=== PATIENT | female | born 1950 | race American Indian/Alaskan Native ===

== ENCOUNTER 2017-05-11 09:05 | Emergency (ER) | payer MEDICAID, MEDICARE, OTHER ==
--- NOTE | 2017-05-11 09:10 | Emergency Department Report ---
ED Neuro Deficit HPI - General Chief Complaint: Neuro Symptoms/Deficit Stated Complaint: POSS CVA Time Seen by Provider: 05/11/17 09:08 Source: patient, EMS (verbal report received from EMS.ems notes not available at time of chart dictation) Mode of arrival: Stretcher Limitations: Physical Limitation - History of Present Illness Initial Comments: This is a 67-year-old female, may have a history of brain cancer, brought to the hospital by EMS as a code stroke. EMS indicates that patient called with a report of weakness, slurred speech that started at 6:00 in the morning today. Symptoms constant. Has a headache, they do not radiate anywhere, no exacerbating or relieving factors. -: Sudden Location: speech, right arm, right leg Presenting Symptoms: Present: Weak/Paralyzed One Side, Sudden, Severe Headache, Unable to Speak Clearly History of same: No Place: home Severity: severe Quality: weak Improves With: time Worsens With: none On Anticoagulants: No Context: sudden onset Associated Symptoms: headaches, malise, nausea/vomiting, weakness. denies: confusion, chest pain, cough, diaphoresis, fever/chills, loss of appetite - Related Data Allergies/Adverse Reactions: Allergies Allergy/AdvReac Type Severity Reaction Status Date / Time No Known Allergies Allergy Unverified 05/11/17 10:15 ED Review of Systems ROS: Stated complaint: POSS CVA Other details as noted in HPI ED Neuro Physical Exam - General Limitations: Physical Limitation General appearance: alert, in distress Suspected Stroke: Yes - Head Head exam: Present: atraumatic, normocephalic - Eye Eye exam: Present: normal appearance, PERRL. Absent: EOMI (patient has a right- sided lateral rectus palsy. Extraocular movements are intact in the left eye. Right eye can abduct, elevate, and look inferiorly.) - ENT ENT exam: Present: mucous membranes moist, normal external ear exam - Neck Neck exam: Present: normal inspection, full ROM - Respiratory Respiratory exam: Present: normal lung sounds bilaterally. Absent: respiratory distress - Cardiovascular Cardiovascular Exam: Present: normal rhythm, bradycardia. Absent: systolic murmur, diastolic murmur, rubs, gallop - GI/Abdominal GI/Abdominal exam: Present: soft, normal bowel sounds. Absent: distended, tenderness, guarding, rebound, rigid, pulsatile mass - Extremities Exam Extremities exam: Present: normal inspection - Back Exam Back exam: Present: normal inspection - Neurological Exam Neurological exam: Present: alert, motor sensory deficit. Absent: CN II-XII intact (patient has a right-sided lateral rectus palsy. She also has slurred speech.) - NIHSS Assessment Interval: Baseline 1a. Level of Consciousness: alert 1b. LOC Questions: answers correctly 1c. LOC Commands: performs tasks correctly 2. Best Gaze: partial gaze palsy 3. Visual: no visual loss 4. Facial Palsy: normal symmetrical movement 5b. Motor Arm Right: some gravity effort 5a. Motor Arm Left: no drift 6a. Motor Leg Left: no drift 6b. Motor Leg Right: some gravity effort 7. Limb Ataxia: present 1 limb 8. Sensory: mild/moderate sensory loss 9. Best Language: no aphasia 10. Dysarthria: mild/moderate dysarthria 11. Extinction/Inattention: no abnormality Total Score: 8 Stroke Severity: Moderate Stroke - Psychiatric Psychiatric exam: Present: anxious - Skin Skin exam: Present: warm, dry, intact, normal color. Absent: rash ED Course Vital Signs 05/11/17 05/11/17 05/11/17 09:58 10:20 10:34 Temperature 98.6 F 98.6 F Pulse Rate 46 L 36 L 45 L Respiratory 18 Rate Blood Pressure 151/54 Blood Pressure 133/52 [Right] O2 Sat by Pulse 100 Oximetry 05/11/17 05/11/17 05/11/17 10:35 11:27 11:37 Temperature Pulse Rate 69 61 Respiratory 18 16 Rate Blood Pressure 171/71 Blood Pressure 168/72 [Right] O2 Sat by Pulse 96 100 100 Oximetry 05/11/17 05/11/17 05/11/17 12:00 12:36 12:43 Temperature Pulse Rate 56 L 46 L Respiratory 16 Rate Blood Pressure 156/55 Blood Pressure 162/75 155/60 [Right] O2 Sat by Pulse 100 Oximetry - Reevaluation(s) Reevaluation #1: 05/11/17 11:12 Patient's mental status gradually deteriorated. She required intubation. She was premedicated with 100 mg of lidocaine, introduced with 20 mg of etomidate, and intubated using a Twin 4 blade and a 7.5 endotracheal tube. She did not desaturate. We contacted [facility], and discussed with neuro critical care, Dr. Hurtado; he is informed of the patient's findings and change in status. Patient had a very transient dip in blood pressure postintubation, I had contacted the pharmacy and requested phenylephrine for push dose vasopressor administration, however it was not available in time, and the patient required emergent intubation. Blood pressure in the 120s now, patient does not require vasopressor therapy at this time. Reevaluation #2: 05/11/17 15:09 At the time of discharge,/transfer, patient having issues with hypotension. However given that she is dramatically declined, it is in her best interest to be transferred and not delay transfer. Therefore, a standing when necessary order for push dose phenylephrine was written and verbally described to the transporting [facility] medics. Order is for phenylephrine, 50 g, every 2-5 minutes , as needed for hypotension, systolic less than 90, low blood pressure at least 120, mean arterial pressure at least 60. - Intubation Time Out Performed: Yes Sedative: Etomidate Mg Given: 20 Paralytic: Rocuronium Mg Given: 100 Laryngoscope: Twin Size: 4 ET Tube Size: 7.5 Tube Secured Location: teeth Tube Placement Confirmation: visualized tube passing t Patient Tolerated Procedure: well Intubation Complications: none Additional Comments: Prior to intubation, patient is placed on a nasal cannula at 15 L/m, and receives pug-vhiuo-meax ventilation. She does not desaturate. - Lab Data Result diagrams: 05/11/17 09:12 05/11/17 09:12 Lab Results 05/11/17 05/11/17 05/11/17 Range/Units 09:12 09:12 09:12 WBC 8.8 (4.5-11.0) K/mm3 RBC 4.47 (3.65-5.03) M/mm3 Hgb 13.3 (10.1-14.3) gm/dl Hct 39.3 (30.3-42.9) % MCV 88 (79-97) fl MCH 30 (28-32) pg MCHC 34 (30-34) % RDW 13.3 (13.2-15.2) % Plt Count 374 (140-440) K/mm3 Add Manual Diff Complete Total Counted 100 Seg Neutrophils % Box Truck Owner Operator Seg Neuts % (Manual) 40.0 (40.0-70.0) % Band Neutrophils % 0 % Lymphocytes % (Manual) 43.0 H (13.4-35.0) % Reactive Lymphs % (Man) 0 % Monocytes % (Manual) 6.0 (0.0-7.3) % Eosinophils % (Manual) 10.0 H (0.0-4.3) % Basophils % (Manual) 0 (0.0-1.8) % Metamyelocytes % 1.0 % Myelocytes % 0 % Promyelocytes % 0 % Blast Cells % 0 % Nucleated RBC % Not Reportable Seg Neutrophils # Man 3.5 (1.8-7.7) K/mm3 Band Neutrophils # 0.0 K/mm3 Lymphocytes # (Manual) 3.8 (1.2-5.4) K/mm3 Abs React Lymphs (Man) 0.0 K/mm3 Monocytes # (Manual) 0.5 (0.0-0.8) K/mm3 Eosinophils # (Manual) 0.9 H (0.0-0.4) K/mm3 Basophils # (Manual) 0.0 (0.0-0.1) K/mm3 Metamyelocytes # 0.1 K/mm3 Myelocytes # 0.0 K/mm3 Promyelocytes # 0.0 K/mm3 Blast Cells # 0.0 K/mm3 WBC Morphology Not Reportable Hypersegmented Neuts Not Reportable Hyposegmented Neuts Not Reportable Hypogranular Neuts Not Reportable Smudge Cells Not Reportable Toxic Granulation Not Reportable Toxic Vacuolation Not Reportable Dohle Bodies Not Reportable Pelger-Huet Anomaly Not Reportable Todd Rods Not Reportable Platelet Estimate Appears normal Clumped Platelets Not Reportable Plt Clumps, EDTA Not Reportable Large Platelets Not Reportable Giant Platelets Not Reportable Platelet Satelliting Not Reportable Plt Morphology Comment Not Reportable RBC Morphology Normal Dimorphic RBCs Not Reportable Polychromasia Not Reportable Hypochromasia Not Reportable Poikilocytosis Not Reportable Anisocytosis Not Reportable Microcytosis Not Reportable Macrocytosis Not Reportable Spherocytes Not Reportable Pappenheimer Bodies Not Reportable Sickle Cells Not Reportable Target Cells Not Reportable Tear Drop Cells Not Reportable Ovalocytes Not Reportable Helmet Cells Not Reportable [place] Bodies Not Reportable [place]bain Rings Not Reportable [place] Cells Not Reportable Bite Cells Not Reportable Crenated Cell Not Reportable Elliptocytes Not Reportable Acanthocytes (Spur) Not Reportable Rouleaux Not Reportable Hemoglobin C Crystals Not Reportable Schistocytes Not Reportable Malaria parasites Not Reportable Edilson Bodies Not Reportable Hem Pathologist Commnt No PT 14.3 (12.2-14.9) Sec. INR 1.06 (0.87-1.13) APTT 24.2 (24.2-36.6) Sec. Thrombin Time 15.0 L (15.1-19.6) Sec. POC ABG pH (7.35-7.45) POC ABG pCO2 (35-45) POC ABG pO2 (80-105) POC ABG HCO3 POC ABG Total CO2 POC ABG O2 Sat POC ABG Base Excess FiO2 % Sodium (137-145) mmol/L Potassium (3.6-5.0) mmol/L Chloride (98-107) mmol/L Carbon Dioxide (22-30) mmol/L Anion Gap mmol/L BUN (7-17) mg/dL Creatinine (0.7-1.2) mg/dL Estimated GFR ml/min BUN/Creatinine Ratio % Glucose (65-100) mg/dL POC Glucose (70-105) Calcium (8.4-10.2) mg/dL Total Creatine Kinase 123 (30-135) units/L CK-MB (CK-2) < 1.0 (0.0-4.0) ng/mL CK-MB (CK-2) Rel Index 0.8 (0-4) Troponin T < 0.010 (0.00-0.029) ng/mL 05/11/17 05/11/17 05/11/17 Range/Units 09:12 10:31 11:39 WBC (4.5-11.0) K/mm3 RBC (3.65-5.03) M/mm3 Hgb (10.1-14.3) gm/dl Hct (30.3-42.9) % MCV (79-97) fl MCH (28-32) pg MCHC (30-34) % RDW (13.2-15.2) % Plt Count (140-440) K/mm3 Add Manual Diff Total Counted Seg Neutrophils % Seg Neuts % (Manual) (40.0-70.0) % Band Neutrophils % % Lymphocytes % (Manual) (13.4-35.0) % Reactive Lymphs % (Man) % Monocytes % (Manual) (0.0-7.3) % Eosinophils % (Manual) (0.0-4.3) % Basophils % (Manual) (0.0-1.8) % Metamyelocytes % % Myelocytes % % Promyelocytes % % Blast Cells % % Nucleated RBC % Seg Neutrophils # Man (1.8-7.7) K/mm3 Band Neutrophils # K/mm3 Lymphocytes # (Manual) (1.2-5.4) K/mm3 Abs React Lymphs (Man) K/mm3 Monocytes # (Manual) (0.0-0.8) K/mm3 Eosinophils # (Manual) (0.0-0.4) K/mm3 Basophils # (Manual) (0.0-0.1) K/mm3 Metamyelocytes # K/mm3 Myelocytes # K/mm3 Promyelocytes # K/mm3 Blast Cells # K/mm3 WBC Morphology Hypersegmented Neuts Hyposegmented Neuts Hypogranular Neuts Smudge Cells Toxic Granulation Toxic Vacuolation Dohle Bodies Pelger-Huet Anomaly Todd Rods Platelet Estimate Clumped Platelets Plt Clumps, EDTA Large Platelets Giant Platelets Platelet Satelliting Plt Morphology Comment RBC Morphology Dimorphic RBCs Polychromasia Hypochromasia Poikilocytosis Anisocytosis Microcytosis Macrocytosis Spherocytes Pappenheimer Bodies Sickle Cells Target Cells Tear Drop Cells Ovalocytes Helmet Cells [place] Bodies Mcbain Rings [place] Cells Bite Cells Crenated Cell Elliptocytes Acanthocytes (Spur) Rouleaux Hemoglobin C Crystals Schistocytes Malaria parasites Edilson Bodies Hem Pathologist Commnt PT (12.2-14.9) Sec. INR (0.87-1.13) APTT (24.2-36.6) Sec. Thrombin Time (15.1-19.6) Sec. POC ABG pH 7.506 H (7.35-7.45) POC ABG pCO2 39.7 (35-45) POC ABG pO2 508 H (80-105) POC ABG HCO3 31.4 POC ABG Total CO2 33 POC ABG O2 Sat 100 POC ABG Base Excess 8 FiO2 100 % Sodium 142 (137-145) mmol/L Potassium 2.8 L* (3.6-5.0) mmol/L Chloride 100.8 (98-107) mmol/L Carbon Dioxide 25 (22-30) mmol/L Anion Gap 19 mmol/L BUN 12 (7-17) mg/dL Creatinine 0.8 (0.7-1.2) mg/dL Estimated GFR > 60 ml/min BUN/Creatinine Ratio 15 % Glucose 152 H (65-100) mg/dL POC Glucose 179 H (70-105) Calcium 9.4 (8.4-10.2) mg/dL Total Creatine Kinase (30-135) units/L CK-MB (CK-2) (0.0-4.0) ng/mL CK-MB (CK-2) Rel Index (0-4) Troponin T (0.00-0.029) ng/mL - EKG Data -: EKG Interpreted by Me EKG shows normal: sinus rhythm Rate: bradycardia When compared to previous EKG there are: previous EKG unavailable - Radiology Data Radiology results: report reviewed, image reviewed interpreted by me: X-ray of the chest demonstrates endotracheal tube at the level of the clavicles. No other acute disease. We will advance the endotracheal tube 2 cm. Referring Physician: CADEN CHIU Patient Name: JULIO C HERNANDEZ Date of : 1950 Sex: Female Report Date: 2017-05-11 Report Status: [place] [address] Cat Scan Report Signed Patient: JULIO C HERNANDEZ MR#: [id number] : 1950 Acct:[id number] Age/Sex: 67 / F ADM Date: 05/11/17 Loc: ED Attending Dr: Ordering Physician: CDAEN CHIU MD Date of Service: 05/11/17 Procedure(s): CT head/brain wo con Accession Number(s): [id number] cc: CADEN CHIU MD CT scan of head without IV contrast: History: Suspect stroke. Findings: Ventricles are midline in location normal in size. Focal area of low-attenuation adjacent to the anterior horn of the right ventricle probably chronic ischemia. There is hemorrhage identified along the cisterns in the subarachnoid spaces with suspicion of intraparenchymal hemorrhage in the right cerebellum. Suspicion of intraventricular hemorrhage. No extra-axial fluid collection. Mucosal thickening of maxillary and ethmoid sinuses normal mastoid air cells. Impression: Acute subarachnoid hemorrhage with suspicion of intraparenchymal and intraventricular hemorrhage. Dr. Dee was informed of the findings at 9:15 AM. 98N Transcribed By: PTP Dictated By: MARIZA MURRAY MD Electronically Authenticated By: MARIZA MURRAY MD Signed Date/Time: 05/11/17907 DD/ 3 TD/TT: 05/11/17907 - Medical Decision Making Differential diagnosis, intracranial tumor, intracranial hemorrhage, stroke Assessment and plan: 67-year-old female with slurred speech and numerous neurologic findings, CT scan demonstrates subarachnoid hemorrhage with intraparenchymal extension. Patient has a GCS of 14, she is somewhat confused, but otherwise opens eyes spontaneously, and has appropriate strength. Given her neurologic deficits, she does qualify for a Larsen and RIDDLE score of 3, which puts her at increased risk for mortality. At this hospital does not have neurosurgery, neuro critical care, neurology available for consultation. She will therefore require transfer to a hospital that has higher level of care. Patient's head of the bed will be elevated to 30, she will be given hydralazine for elevated blood pressure and she'll be loaded with 1 g of Keppra. Her case was presented to neuro critical care physician and [facility], Dr. Lydia Hurtado; he accepts the patient as a transfer. - Core Measures Measure Exclusions: not indicated - Thrombolytic Inclusion/Exclusion Thrombolytic Contraindications: GI or Other Bleeding Critical Care Time: Yes Critical care time in (mins) excluding proc time.: 35 Critical care attestation.: If time is entered above; I have spent that time in minutes in the direct care of this critically ill patient, excluding procedure time. ED Disposition Clinical Impression: Subarachnoid hemorrhage Disposition: DC/TX-02 SHRT-TRM GEN HOSP IP Is pt being admited?: No Condition: Critical Referrals: PRIMARY CARE, [Primary Care Provider] - 3-5 Days
[2017-05-11 09:19] LABS: Hematocrit 39.3 % (30.3-42.9); Hemoglobin 13.3 gm/dl (10.1-14.3); Mean Corpuscular HGB Conc 34 % (30-34); Mean Corpuscular Hemoglobin 30 pg (28-32); Mean Corpuscular Volume 88 fl (79-97); Platelet Count 374 K/mm3 (140-440); Red Blood Count 4.47 M/mm3 (3.65-5.03); Red Cell Distribution Width 13.3 % (13.2-15.2)
--- NOTE | 2017-05-11 09:25 | Cat Scan Report ---
CT scan of head without IV contrast: History: Suspect stroke. Findings: Ventricles are midline in location normal in size. Focal area of low-attenuation adjacent to the anterior horn of the right ventricle probably chronic ischemia. There is hemorrhage identified along the cisterns in the subarachnoid spaces with suspicion of intraparenchymal hemorrhage in the right cerebellum. Suspicion of intraventricular hemorrhage. No extra-axial fluid collection. Mucosal thickening of maxillary and ethmoid sinuses normal mastoid air cells. Impression: Acute subarachnoid hemorrhage with suspicion of intraparenchymal and intraventricular hemorrhage. Dr. Dee was informed of the findings at 9:15 AM. 98N
[2017-05-11 09:31] LABS: INR 1.06 (0.87-1.13)
[2017-05-11 09:32] LABS: Partial Thromboplastin Time 24.2 Sec. (24.2-36.6)
[2017-05-11 09:35] LABS: Creatine Kinase MB < 1.0 ng/mL (0.0-4.0)
[2017-05-11] MEDS ORDERED: KEPPRA 1,000 MG in NACL 0.9% 100 ML IV STA (09:40)
[2017-05-11] MEDS ORDERED: APRESOLINE IV ONE ×2 (09:43→12:43)
[2017-05-11 09:49] LABS: BUN/Creatinine Ratio 15; Blood Urea Nitrogen 12 mg/dL (7-17); Calcium 9.4 mg/dL (8.4-10.2); Hemolysis Index 2
[2017-05-11] MEDS ORDERED: MAGNESIUM SULFATE 2GM/50ML 2 GM/50 ML BAG IV ONE (09:56)
[2017-05-11] MEDS ORDERED: SUBLIMAZE IV ONE (09:56)
[2017-05-11] MEDS ORDERED: KCL 10MEQ/100ML 10 MEQ/100 ML BAG IV SCH (10:00)
[2017-05-11 10:01] LABS: Basophils % (Manual) 0 % (0.0-1.8); Total Cells Counted 100
[2017-05-11 10:02] LABS: RBC Morphology Normal
[2017-05-11] MEDS ORDERED: KEPPRA 1,000 MG/NS 0.75% 100ML 1,000 MG/100 ML BAG IV ONE (10:16)
[2017-05-11] MEDS ORDERED: NEO-SYNEPHRINE 100 MG in NACL 0.9% 90 ML IV ONE ×2 (10:47→11:07)
[2017-05-11] MEDS ORDERED: NACL 0.9% 1000 ML 1,000 ML ONE (10:50)
--- NOTE | 2017-05-11 10:59 | XRay Report ---
Single view chest: History: CVA. Findings: Borderline cardiomegaly. Trachea is midline. No consolidation, pneumothorax or pleural effusion. Impression: No acute cardiopulmonary findings.
[2017-05-11] MEDS ORDERED: AMIDATE IV ONE ×2 (11:00→11:05)
[2017-05-11] MEDS ORDERED: ZEMURON IV ONE ×2 (11:00→11:05)
[2017-05-11] MEDS ORDERED: XYLOCAINE CARDIAC IV ONE ×2 (11:00→11:07)
[2017-05-11] MEDS ORDERED: ARTIFICIAL TEARS OPHTH OINT OU PRN (11:05)
[2017-05-11] MEDS ORDERED: VASELINE LIP THERAPY TP PRN (11:05)
[2017-05-11] MEDS ORDERED: NEO SYNEPHRINE/NS Syringe(OR USE) IV STA (11:07)
[2017-05-11] MEDS ORDERED: NACL 0.9% IV SCH ×2 (11:15)
[2017-05-11] MEDS ORDERED: NEO SYNEPHRINE IV SCH ×2 (11:15)
--- NOTE | 2017-05-11 11:50 | XRay Report ---
FINAL REPORT EXAM: XR CHEST 1V AP HISTORY: ETT placement TECHNIQUE: Frontal chest radiograph. PRIORS: None. FINDINGS: An endotracheal tube is present with the tip lying in the mid thoracic trachea. The cardiomediastinal silhouette is normal. Ground-glass opacities are seen in the left lower lobe. No pleural effusion. No pneumothorax. No acute osseous abnormality. IMPRESSION: 1. Endotracheal tube tip lying in the mid thoracic trachea. 2. Left lower lobe atelectasis versus pneumonia.
[2017-05-11] MEDS ORDERED: KEPPRA 1,000 MG in NACL 0.9% 100 ML IV ONE (12:00)
[2017-05-11] MEDS ORDERED: NACL 0.9% 500 ML IV SCH (12:00)
[2017-05-11] MEDS ORDERED: fentaNYL DRIP Premix 2,000 MCG/100 ML BAG IV SCH (12:00)
[2017-05-11] MEDS ORDERED: APRESOLINE ONE (12:32)
[2017-05-11 12:44] VITALS: BP 156/55
== END 2017-05-11 13:30 | disposition short-term general hospital (02) ==
LOC: ED 09:05
DX: I60.9 Nontraumatic subarachnoid hemorrhage, unspecified (principal)
CPT/HCPCS: 31500; 36415; 51702; 70450; 71010; 80048; 82550; 82553; 82803; 82962; 84484; 85007; 85025; 85610; 85670; 85730; 93005; 93010; 96365; 96367; 96368; 96375; 96376; 99291; J0360; J1953; J2001; J2370; J3010; J3475; J3480; J7030; 94002

== ENCOUNTER 2017-09-15 10:37 | Emergency (ER) | payer MEDICARE ==
[2017-09-15 11:29] LABS: Basophils % (Auto) 0.2 % (0.0-1.8); Eosinophils # (Auto) 0.8 K/mm3 (0.0-0.4); Eosinophils % (Auto) 12.5 % (0.0-4.3); Hematocrit 38.4 % (30.3-42.9); Hemoglobin 12.8 gm/dl (10.1-14.3); Lymphocytes # (Auto) 1.7 K/mm3 (1.2-5.4); Lymphocytes % (Auto) 26.1 % (13.4-35.0); Mean Corpuscular HGB Conc 33 % (30-34); Mean Corpuscular Hemoglobin 28 pg (28-32); Mean Corpuscular Volume 83 fl (79-97); Monocytes # (Auto) 0.4 K/mm3 (0.0-0.8); Platelet Count 304 K/mm3 (140-440); Red Blood Count 4.64 M/mm3 (3.65-5.03); Red Cell Distribution Width 16.1 % (13.2-15.2)
[2017-09-15 11:40] LABS: BUN/Creatinine Ratio 35; Blood Urea Nitrogen 21 mg/dL (7-17); Hemolysis Index 5
--- NOTE | 2017-09-15 11:50 | Emergency Department Report ---
ED ENT HPI - General Chief complaint: Dyspnea/Respdistress Stated complaint: TRACH REINSERTED Time Seen by Provider: 09/15/17 11:23 Source: patient, EMS Mode of arrival: Stretcher Limitations: No Limitations - History of Present Illness Initial comments: 67-year-old female presents to the hospital complaining of this last tracheostomy tube. Patient presents with the on-call 6.0 Lithuanian trach at the bedside. Patient states the trach came out while changing her trach ties and after coughing. Patient states she had a history of a brain tumor and after radiation she had a stroke in April 2017 while at [facility]. She was subsequently trach and received a feeding tube. Patient does not eat via mouth. Patient is breathing normally and states she feels fine with the trach tube out and does not really want it replaced. Her ENT doctor is Dr. Holden at [facility]. Patient states she has baseline right arm weakness and ambulates with a walker - Related Data Home Medications Medication Instructions Recorded Confirmed Last Taken Amlodipine Besylate [Norvasc] 10 mg PO QDAY 09/15/17 09/15/17 Unknown Famotidine [Pepcid] 20 mg PO BID 09/15/17 09/15/17 Unknown Losartan/Hydrochlorothiazide 1 each PO QDAY 09/15/17 09/15/17 Unknown [Hyzaar 100-12.5 Tablet] Metoclopramide [Reglan ORAL LIQ] 10 ml PO QID 09/15/17 09/15/17 Unknown Sertraline HCl [Zoloft] 50 mg PO QDAY 09/15/17 09/15/17 Unknown Allergies Allergy/AdvReac Type Severity Reaction Status Date / Time No Known Allergies Allergy Unverified 05/11/17 10:15 ED Dental HPI - General Chief complaint: Dyspnea/Respdistress Stated complaint: TRACH REINSERTED Time Seen by Provider: 09/15/17 11:23 Source: patient, EMS Mode of arrival: Stretcher Limitations: No Limitations - Related Data Home Medications Medication Instructions Recorded Confirmed Last Taken Amlodipine Besylate [Norvasc] 10 mg PO QDAY 09/15/17 09/15/17 Unknown Famotidine [Pepcid] 20 mg PO BID 09/15/17 09/15/17 Unknown Losartan/Hydrochlorothiazide 1 each PO QDAY 09/15/17 09/15/17 Unknown [Hyzaar 100-12.5 Tablet] Metoclopramide [Reglan ORAL LIQ] 10 ml PO QID 09/15/17 09/15/17 Unknown Sertraline HCl [Zoloft] 50 mg PO QDAY 09/15/17 09/15/17 Unknown Allergies Allergy/AdvReac Type Severity Reaction Status Date / Time No Known Allergies Allergy Unverified 05/11/17 10:15 ED Review of Systems ROS: Stated complaint: TRACH REINSERTED Other details as noted in HPI Comment: All other systems reviewed and negative ED Past Medical Hx - Past Medical History Hx Hypertension: Yes Hx CVA: Yes (04/2017) Hx Headaches / Migraines: Yes (pt was diagnoised with a brain tumor at [facility]) - Surgical History Past Surgical History?: Yes Additional Surgical History: Nephrectomy, Hysterectomy, - Social History Smoking Status: Never Smoker Substance Use Type: None - Medications Home Medications: Home Medications Medication Instructions Recorded Confirmed Last Taken Type Amlodipine Besylate [Norvasc] 10 mg PO QDAY 09/15/17 09/15/17 Unknown History Famotidine [Pepcid] 20 mg PO BID 09/15/17 09/15/17 Unknown History Losartan/Hydrochlorothiazide 1 each PO QDAY 09/15/17 09/15/17 Unknown History [Hyzaar 100-12.5 Tablet] Metoclopramide [Reglan ORAL LIQ] 10 ml PO QID 09/15/17 09/15/17 Unknown History Sertraline HCl [Zoloft] 50 mg PO QDAY 09/15/17 09/15/17 Unknown History ED Physical Exam - General Limitations: No Limitations - Other Other exam information: General: No limitations, patient is alert in no acute distress Head exam: Atraumatic, normocephalic Eyes exam: Normal appearance, pupils equal reactive to light, extraocular movements intact ENT: Moist mucous membrane, tracheostomy stoma noted. No stridor Neck exam: Normal inspection, full range of motion, no meningismus nontender Respiratory exam: Clear to auscultation bilateral, no wheezes, rales, crackles Cardiovascular: Normal rate and rhythm, normal heart sounds Abdomen: Soft, nondistended, and nontender, with normal bowel sounds, no rebound, or guarding. 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 operator, 5/5 lower extremity strength Psychiatric: normal affect, normal mood Skin: Warm, dry, intact ED Course Vital Signs 09/15/17 09/15/17 09/15/17 10:42 10:45 10:54 Temperature 97.9 F Pulse Rate 72 78 Respiratory 13 18 Rate Blood Pressure 137/64 O2 Sat by Pulse 96 98 98 Oximetry 09/15/17 09/15/17 09/15/17 11:00 11:15 11:30 Temperature Pulse Rate 66 84 68 Respiratory 13 15 13 Rate Blood Pressure 124/65 124/65 132/62 O2 Sat by Pulse 100 98 94 Oximetry 09/15/17 09/15/17 09/15/17 11:45 12:01 12:15 Temperature Pulse Rate 102 H 85 83 Respiratory 24 12 24 Rate Blood Pressure 132/62 132/62 132/62 O2 Sat by Pulse 99 98 99 Oximetry 09/15/17 09/15/17 09/15/17 12:31 12:45 13:00 Temperature Pulse Rate 81 73 76 Respiratory 16 12 17 Rate Blood Pressure 122/41 122/41 128/72 O2 Sat by Pulse 98 98 98 Oximetry 09/15/17 09/15/17 13:15 13:31 Temperature Pulse Rate 80 82 Respiratory 11 L 16 Rate Blood Pressure 128/72 131/74 O2 Sat by Pulse 99 100 Oximetry - Reevaluation(s) Reevaluation #1: 09/15/17 12:28 4.0 uncuffed trach tube placed by Resp therapist (stoma too small for 6.0 tube) - Consultations Consultation #1: 09/15/17 13:42 Case d/w Pt's ENT doctor DR Holden, aware of trach change to 4.0, f/u appropriate ED Medical Decision Making - Lab Data Result diagrams: 09/15/17 11:12 09/15/17 11:12 Lab Results 09/15/17 09/15/17 Range/Units 11:12 11:12 WBC 6.3 (4.5-11.0) K/mm3 RBC 4.64 (3.65-5.03) M/mm3 Hgb 12.8 (10.1-14.3) gm/dl Hct 38.4 (30.3-42.9) % MCV 83 (79-97) fl MCH 28 (28-32) pg MCHC 33 (30-34) % RDW 16.1 H (13.2-15.2) % Plt Count 304 (140-440) K/mm3 Lymph % (Auto) 26.1 (13.4-35.0) % [place] % (Auto) 6.0 (0.0-7.3) % Eos % (Auto) 12.5 H (0.0-4.3) % Baso % (Auto) 0.2 (0.0-1.8) % Lymph # 1.7 (1.2-5.4) K/mm3 [place] # 0.4 (0.0-0.8) K/mm3 Eos # 0.8 H (0.0-0.4) K/mm3 Baso # 0.0 (0.0-0.1) K/mm3 Seg Neutrophils % 55.2 (40.0-70.0) % Seg Neutrophils # 3.5 (1.8-7.7) K/mm3 Sodium 139 (137-145) mmol/L Potassium 3.7 (3.6-5.0) mmol/L Chloride 99.1 (98-107) mmol/L Carbon Dioxide 29 (22-30) mmol/L Anion Gap 15 mmol/L BUN 21 H (7-17) mg/dL Creatinine 0.6 L (0.7-1.2) mg/dL Estimated GFR > 60 ml/min BUN/Creatinine Ratio 35 % Glucose 90 (65-100) mg/dL Calcium 10.0 (8.4-10.2) mg/dL - Radiology Data Radiology results: report reviewed interpreted by me: read by radiologist CXR: naf - Medical Decision Making 4.0 uncuffed tracheostomy tube placed by respiratory therapist. Patient breathing without distress. This was discussed with patient's primary ENT doctor Edin. Follow-up advised - Differential Diagnosis tracheostomy dislodgment Critical Care Time: No Critical care attestation.: If time is entered above; I have spent that time in minutes in the direct care of this critically ill patient, excluding procedure time. ED Disposition Clinical Impression: Tracheostomy care, Encounter for tracheostomy tube change, Tracheostomy complication, unspecified Disposition: DC-01 TO HOME OR SELFCARE Is pt being admited?: No Does the pt Need Aspirin: No Condition: Stable Instructions: Tracheostomy Care (ED) Additional Instructions: Follow-up with your ENT doctor at [facility]. I did speak to your doctor and informed him of the tracheostomy tube change. Return if symptoms worsen as indicated by your discharge instructions. Referrals: MD Adina [Other] - 3-5 Days (ENT at [facility]) Time of Disposition: 13:46
--- NOTE | 2017-09-15 12:10 | XRay Report ---
AP CHEST: HISTORY: Dyspnea AP view of the chest demonstrates a normal mediastinal and cardiac contour with clear lungs and normal bony and soft tissue structures. IMPRESSION: Unremarkable AP chest.
[2017-09-15 14:23] VITALS: BP 128/74
== END 2017-09-15 14:25 | disposition home or self-care (01) ==
LOC: ED 10:37
DX: J95.00 Unspecified tracheostomy complication (principal); I10 Essential (primary) hypertension; G43.909 Migraine, unspecified, not intractable, without status migrainosus; Z86.73 Personal history of transient ischemic attack (TIA), and cerebral infarction without residual deficits; Z90.5 Acquired absence of kidney; Z90.710 Acquired absence of both cervix and uterus
CPT/HCPCS: 36415; 71045; 80048; 85025; 99284

== ENCOUNTER 2018-02-22 19:56 | Emergency (ER) | payer MEDICARE ==
[2018-02-22] MEDS ORDERED: NACL 0.9% 1000 ML 1,000 ML IV ONE ×3 (20:10→22:10)
--- NOTE | 2018-02-22 20:53 | Emergency Department Report ---
ED N/V/D HPI - General Chief complaint: Abdominal Pain Stated complaint: LOW ABDOMINAL/DIARRHEA Time Seen by Provider: 02/22/18 20:35 Source: EMS Mode of arrival: Stretcher Limitations: Physical Limitation - History of Present Illness Initial comments: 68-year-old with a past medical history CVA with residual left-sided weakness, tracheostomy, PEG tube, previous hysterectomy and right nephrectomy secondary to infection presents to the hospital complains of intermittent aching/cramping abdominal pain, nausea, and diarrhea. Symptoms started today. Positive nausea improved with antiemetic medication without vomiting. 3-4 episodes of nonbloody stools today. Patient felt lightheaded and weak and told it today. No complaints of syncope. Denies fever, recent travel, sick contacts, antibiotic use, dysuria, or melena. Patient does not take anything by mouth and instead take via PEG tube. - Related Data Home Medications Medication Instructions Recorded Confirmed Last Taken Amlodipine Besylate [Norvasc] 10 mg PO QDAY 09/15/17 09/15/17 Unknown Famotidine [Pepcid] 20 mg PO BID 09/15/17 09/15/17 Unknown Losartan/Hydrochlorothiazide 1 each PO QDAY 09/15/17 09/15/17 Unknown [Hyzaar 100-12.5 Tablet] Metoclopramide [Reglan ORAL LIQ] 10 ml PO QID 09/15/17 09/15/17 Unknown Sertraline HCl [Zoloft] 50 mg PO QDAY 09/15/17 09/15/17 Unknown Previous Rx's Medication Instructions Recorded Last Taken Type Bismuth Subsalicylate 30 mg FEEDTUBE QID PRN #240 udc 02/23/18 Unknown Rx [Pepto-Bismol] Ciprofloxacin HCl [Cipro] 500 mg FEEDTUBE BID #10 tablet 02/23/18 Unknown Rx Promethazine [Phenergan TAB] 25 mg FEEDTUBE Q6HR PRN #20 tab 02/23/18 Unknown Rx Allergies Allergy/AdvReac Type Severity Reaction Status Date / Time No Known Allergies Allergy Verified 02/22/18 20:08 ED Review of Systems ROS: Stated complaint: LOW ABDOMINAL/DIARRHEA Other details as noted in HPI Comment: All other systems reviewed and negative 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) Hx Headaches / Migraines: Yes (pt was diagnoised with a brain tumor at [facility]) - Surgical History Additional Surgical History: Nephrectomy, Hysterectomy, tracheostomy secondary to CVA, peg tube secondary to CVA - Social History Smoking Status: Never Smoker Substance Use Type: None - Medications Home Medications: Home Medications Medication Instructions Recorded Confirmed Last Taken Type Amlodipine Besylate [Norvasc] 10 mg PO QDAY 09/15/17 09/15/17 Unknown History Famotidine [Pepcid] 20 mg PO BID 09/15/17 09/15/17 Unknown History Losartan/Hydrochlorothiazide 1 each PO QDAY 09/15/17 09/15/17 Unknown History [Hyzaar 100-12.5 Tablet] Metoclopramide [Reglan ORAL LIQ] 10 ml PO QID 09/15/17 09/15/17 Unknown History Sertraline HCl [Zoloft] 50 mg PO QDAY 09/15/17 09/15/17 Unknown History Bismuth Subsalicylate 30 mg FEEDTUBE QID PRN #240 udc 02/23/18 Unknown Rx [Pepto-Bismol] Ciprofloxacin HCl [Cipro] 500 mg FEEDTUBE BID #10 tablet 02/23/18 Unknown Rx Promethazine [Phenergan TAB] 25 mg FEEDTUBE Q6HR PRN #20 tab 02/23/18 Unknown Rx ED Physical Exam - General Limitations: Physical Limitation - Other Other exam information: General: No limitations, patient is alert in no acute distress Head exam: Atraumatic, normocephalic Eyes exam: Normal appearance ENT: Moist mucous membrane Neck exam: Normal inspection, full range of motion, trachea Respiratory exam: Clear to auscultation bilateral, no wheezes, rales, crackles Cardiovascular: Normal rate and rhythm, normal heart sounds Abdomen: Soft, nondistended, left upper quadrant peg, with normal bowel sounds, no rebound, or guarding Extremity: Full range of motion normal inspection no deformity Back: Normal Inspection, full range of motion, no tenderness Neurologic: Alert, oriented x3, cranial nerves intact, very minimal left sided weakness compared to the right. Psychiatric: normal affect, normal mood Skin: Warm, dry, intact ED Course Vital Signs 02/22/18 02/22/18 02/23/18 20:34 22:21 00:01 Temperature 98.2 F Pulse Rate 60 75 69 Respiratory 16 16 16 Rate Blood Pressure 117/33 133/63 135/55 [Left] O2 Sat by Pulse 100 99 98 Oximetry ED Medical Decision Making - Lab Data Result diagrams: 02/22/18 20:25 02/22/18 20:25 Lab Results 02/22/18 02/22/18 02/22/18 Range/Units 20:25 20:25 22:00 WBC 8.0 (4.5-11.0) K/mm3 RBC 4.37 (3.65-5.03) M/mm3 Hgb 13.4 (10.1-14.3) gm/dl Hct 39.0 (30.3-42.9) % MCV 89 (79-97) fl MCH 31 (28-32) pg MCHC 34 (30-34) % RDW 13.4 (13.2-15.2) % Plt Count 235 (140-440) K/mm3 Lymph % (Auto) 15.6 (13.4-35.0) % [place] % (Auto) 6.9 (0.0-7.3) % Eos % (Auto) 4.3 (0.0-4.3) % Baso % (Auto) 0.2 (0.0-1.8) % Lymph # 1.2 (1.2-5.4) K/mm3 [place] # 0.5 (0.0-0.8) K/mm3 Eos # 0.3 (0.0-0.4) K/mm3 Baso # 0.0 (0.0-0.1) K/mm3 Seg Neutrophils % 73.0 H (40.0-70.0) % Seg Neutrophils # 5.8 (1.8-7.7) K/mm3 Sodium 138 (137-145) mmol/L Potassium 3.5 L (3.6-5.0) mmol/L Chloride 105.2 (98-107) mmol/L Carbon Dioxide 21 L (22-30) mmol/L Anion Gap 15 mmol/L BUN 22 H (7-17) mg/dL Creatinine 0.8 (0.7-1.2) mg/dL Estimated GFR > 60 ml/min BUN/Creatinine Ratio 28 % Glucose 101 H (65-100) mg/dL Calcium 9.2 (8.4-10.2) mg/dL Total Bilirubin 0.30 (0.1-1.2) mg/dL AST 20 (5-40) units/L ALT 21 (7-56) units/L Alkaline Phosphatase 161 H (35-129) units/L Total Protein 6.9 (6.3-8.2) g/dL Albumin 3.8 L (3.9-5) g/dL Albumin/Globulin Ratio 1.2 % Lipase 55 (13-60) units/L Urine Color Yellow (Yellow) Urine Turbidity Cloudy (Clear) Urine pH 5.0 (5.0-7.0) Ur Specific [place] 1.019 (1.003-1.030) Urine Protein 30 mg/dl (Negative) mg/dL Urine Glucose (UA) Neg (Negative) mg/dL Urine Ketones Neg (Negative) mg/dL Urine Blood Sm (Negative) Urine Nitrite Neg (Negative) Urine Bilirubin Neg (Negative) Urine Urobilinogen 2.0 (<2.0) mg/dL Ur Leukocyte Esterase Lg (Negative) Urine WBC (Auto) 34.0 H (0.0-6.0) /HPF Urine RBC (Auto) 15.0 (0.0-6.0) /HPF U Epithel Cells (Auto) 2.0 (0-13.0) /HPF Urine Bacteria (Auto) 4+ (Negative) /HPF Urine Mucus Few /HPF - Radiology Data Radiology results: report reviewed abd flat and upright xray: no obstruction or free air. some mild gaseous distention of colon within physiologic limits - Medical Decision Making Nausea, vomiting, and diarrhea Gastroenteritis Labs revealed mild dehydration and hypokalemia Patient received 1 L normal saline and potassium via peg Patient reports feeling better UA reveals possibly UTI She has chronic urinary incontinence Levaquin initiated in ED Patient will be discharged on Cipro - Differential Diagnosis colitis, enteritis, gastroenteritis, hepatitis, pancreatitis, UTI Critical Care Time: No Critical care attestation.: If time is entered above; I have spent that time in minutes in the direct care of this critically ill patient, excluding procedure time. ED Disposition Clinical Impression: Gastroenteritis, UTI (urinary tract infection), Hypokalemia Disposition: TO HOME OR SELFCARE Is pt being admited?: No Does the pt Need Aspirin: No Condition: Stable Instructions: Gastroenteritis (ED), Urinary Tract Infection in Women (ED) Additional Instructions: Take the medication as prescribed. Follow up with your doctor. Return if symptoms worsen as indicated by your discharge instructions Prescriptions: Bismuth Subsalicylate [Pepto-Bismol] 30 mg FEEDTUBE QID PRN #240 udc PRN Reason: Diarrhea Ciprofloxacin HCl [Cipro] 500 mg FEEDTUBE BID #10 tablet Promethazine [Phenergan TAB] 25 mg FEEDTUBE Q6HR PRN #20 tab PRN Reason: Nausea Referrals: PRIMARY CARE, [Primary Care Provider] - 2-3 Days Time of Disposition: 01:17
[2018-02-22 20:57] LABS: Basophils % (Auto) 0.2 % (0.0-1.8); Eosinophils # (Auto) 0.3 K/mm3 (0.0-0.4); Eosinophils % (Auto) 4.3 % (0.0-4.3); Hemoglobin 13.4 gm/dl (10.1-14.3); Lymphocytes # (Auto) 1.2 K/mm3 (1.2-5.4); Lymphocytes % (Auto) 15.6 % (13.4-35.0); Mean Corpuscular HGB Conc 34 % (30-34); Mean Corpuscular Hemoglobin 31 pg (28-32); Mean Corpuscular Volume 89 fl (79-97); Monocytes # (Auto) 0.5 K/mm3 (0.0-0.8); Monocytes % (Auto) 6.9 % (0.0-7.3); Platelet Count 235 K/mm3 (140-440); Red Blood Count 4.37 M/mm3 (3.65-5.03); Red Cell Distribution Width 13.4 % (13.2-15.2)
[2018-02-22 21:03] LABS: Alanine Aminotransferase 21 units/L (7-56); Albumin 3.8 g/dL (3.9-5); BUN/Creatinine Ratio 28; Blood Urea Nitrogen 22 mg/dL (7-17); Calcium 9.2 mg/dL (8.4-10.2); Hemolysis Index 19; Lipase 55 units/L (13-60)
[2018-02-22] MEDS ORDERED: POTASSIUM CHLORIDE FEEDTUBE ONE (21:32)
[2018-02-22 22:22] LABS: Bacteria,Urine 4+ /HPF (Negative); Bilirubin,Urine NEG (Negative); Blood,Urine SM (Negative); Color,Urine Yellow (Yellow); Mucus,Urine FEW /HPF
--- NOTE | 2018-02-22 22:41 | XRay Report ---
FINAL REPORT PROCEDURE: XR ABDOMEN 2V TECHNIQUE: Abdominal series, including supine and upright AP views. HISTORY: n,v,d COMPARISON: No prior studies are available for comparison. FINDINGS: Bowel gas pattern:Nonobstructive . Masses or calcifications:None . Bony structures:No significant abnormality . Pneumoperitoneum:None . Other: A gastrostomy tube is identified with its bulb in the 1st portion of duodenum.. IMPRESSION: The retaining balloon of the gastrostomy tube is in the duodenal bulb most likely causing gastric outlet obstruction. Repositioning of the gastrostomy tube is recommended..
[2018-02-23] MEDS ORDERED: LEVAQUIN FEEDTUBE ONE (00:32)
[2018-02-23 01:45] VITALS: BP 125/59
== END 2018-02-23 01:35 | disposition home or self-care (01) ==
LOC: ED 19:56
DX: K52.9 Noninfective gastroenteritis and colitis, unspecified (principal); N39.0 Urinary tract infection, site not specified; E87.6 Hypokalemia; I10 Essential (primary) hypertension; Z86.73 Personal history of transient ischemic attack (TIA), and cerebral infarction without residual deficits; G43.909 Migraine, unspecified, not intractable, without status migrainosus; Z90.710 Acquired absence of both cervix and uterus
CPT/HCPCS: 36415; 74019; 80053; 81001; 83690; 85025; 96360; 96361; 99284; J7030

== ENCOUNTER 2018-08-07 16:41 | Emergency (ER) | payer MEDICARE ==
[2018-08-07] MEDS ORDERED: MORPHINE IV ONE (18:10)
[2018-08-07] MEDS ORDERED: NACL 0.9% 1000 ML 1,000 ML IV ONE (18:11)
--- NOTE | 2018-08-07 18:12 | Emergency Department Report ---
HPI - General Chief Complaint: Abdominal Pain Time Seen by Provider: 08/07/18 18:05 - HPI HPI: 68-year-old -Citizen Of [place] female presents to the emergency department via EMS from home with complaint of lower abdominal pain that started about 3 hours bogdan or to presentation. She denies any fever, nausea, vomiting, dysuria, vaginal discharge, rectal bleeding, diarrhea. She says that she's been having some constipation but did have a satisfactory bowel movement this morning. 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 She has a history of hypertension and she has one kidney. She took a [place] for her pain prior to presentation without much relief. Her primary care physician is Dr. Arguello. No recent travel or sick contacts at home. 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) Hx Headaches / Migraines: Yes (pt was diagnoised with a brain tumor at [facility]) - Surgical History Additional Surgical History: Nephrectomy, Hysterectomy, tracheostomy secondary to CVA, peg tube secondary to CVA - Social History Smoking Status: Former Smoker Substance Use Type: None - Medications Home Medications: Home Medications Medication Instructions Recorded Confirmed Last Taken Type Amlodipine Besylate [Norvasc] 10 mg PO QDAY 09/15/17 09/15/17 Unknown History Famotidine [Pepcid] 20 mg PO BID 09/15/17 09/15/17 Unknown History Losartan/Hydrochlorothiazide 1 each PO QDAY 09/15/17 09/15/17 Unknown History [Hyzaar 100-12.5 Tablet] Metoclopramide [Reglan ORAL LIQ] 10 ml PO QID 09/15/17 09/15/17 Unknown History Sertraline HCl [Zoloft] 50 mg PO QDAY 09/15/17 09/15/17 Unknown History Bismuth Subsalicylate 30 ml FEEDTUBE QID PRN #240 ml 02/23/18 Unknown Rx [Pepto-Bismol] Ciprofloxacin HCl [Cipro] 500 mg FEEDTUBE BID #10 tablet 02/23/18 Unknown Rx Promethazine [Phenergan TAB] 25 mg FEEDTUBE Q6HR PRN #20 tab 02/23/18 Unknown Rx ED Review of Systems ROS: Stated complaint: ABD PAIN Other details as noted in HPI Comment: All other systems reviewed and negative Constitutional: denies: chills, fever Eyes: denies: eye pain, vision change ENT: denies: ear pain, throat pain Respiratory: denies: cough, shortness of breath Cardiovascular: denies: chest pain, palpitations Gastrointestinal: abdominal pain. denies: vomiting Genitourinary: denies: dysuria, frequency Musculoskeletal: denies: back pain, arthralgia Skin: denies: rash, lesions Neurological: denies: headache, weakness Physical Exam - Physical Exam Physical Exam: GENERAL: The patient is well-developed well-nourished. HEENT: Normocephalic. Atraumatic. Patient has moist mucous membranes. EYES: Extraocular motions are intact. Pupils are equal and reactive to light bilaterally. NECK: Supple. Trachea is midline with tracheostomy in place. CHEST/LUNGS: Clear to auscultation. There is no respiratory distress noted. HEART/CARDIOVASCULAR: Regular. There is no tachycardia. There is no obvious murmur. ABDOMEN: Abdomen is soft. There is lower quadrant tenderness to palpation. No guarding. A PEG tube is in place. Patient has normal bowel sounds. There is no abdominal distention. SKIN: Skin is warm and dry. NEURO: The patient is awake, alert, and cooperative. The patient has no focal neurologic deficits. MUSCULOSKELETAL: There is no tenderness or deformity. There is no limitation range of motion. There is no evidence of acute injury. ED Medical Decision Making - Lab Data Result diagrams: 08/07/18 18:46 08/07/18 18:46 - Medical Decision Making This patient presents to the emergency department with a complaint of some lower abdominal pain that started just prior to presentation. Labs were mostly unremarkable. A CT scan of the abdomen and pelvis with IV contrast was done that shows some incidental findings but otherwise no significant etiology of her pain. She got 1 dose of pain medication and says that her symptoms have resolved. She has good follow-up with primary care. Vital signs stable throughout her ED course. She's been instructed to return to the emergency department with any return or worsening of her symptoms, or if any acute distress. - Differential Diagnosis UTI, colitis, diverticulitis, malignancy Critical Care Time: No Critical care attestation.: If time is entered above; I have spent that time in minutes in the direct care of this critically ill patient, excluding procedure time. ED Disposition Clinical Impression: Abdominal pain Qualifiers: Abdominal location: lower abdomen, unspecified Qualified Code(s): R10.30 - L ower abdominal pain, unspecified Disposition: TO HOME OR SELFCARE Is pt being admited?: No Condition: Stable Instructions: Abdominal Pain (ED) Additional Instructions: Please follow-up with your primary care physician in the next few days. Return to the emergency Department with any worsening of your symptoms or any acute distress. Referrals: Primary Care Physician, Your [Other] - 3-5 Days Time of Disposition: 22:44
[2018-08-07 19:01] LABS: Basophils % (Auto) 0.2 % (0.0-1.8); Eosinophils % (Auto) 0.4 % (0.0-4.3); Lymphocytes # (Auto) 0.7 K/mm3 (1.2-5.4); Lymphocytes % (Auto) 8.4 % (13.4-35.0); Mean Corpuscular HGB Conc 36 % (30-34); Mean Corpuscular Hemoglobin 32 pg (28-32); Mean Corpuscular Volume 88 fl (79-97); Monocytes # (Auto) 0.2 K/mm3 (0.0-0.8); Monocytes % (Auto) 2.7 % (0.0-7.3); Platelet Count 253 K/mm3 (140-440); Red Blood Count 4.71 M/mm3 (3.65-5.03); Red Cell Distribution Width 13.3 % (13.2-15.2)
[2018-08-07 19:02] LABS: Hematocrit 41.5 % (30.3-42.9)
[2018-08-07 19:40] LABS: Alanine Aminotransferase 21 units/L (7-56); Albumin 4.3 g/dL (3.9-5); BUN/Creatinine Ratio 26; Blood Urea Nitrogen 21 mg/dL (7-17); Hemolysis Index 19
--- NOTE | 2018-08-07 19:54 | XRay Report ---
PROCEDURE: XR ABDOMEN 2V TECHNIQUE: Supine views of the abdomen HISTORY: abd pain COMPARISONS: KUB abdomen 02/22/2018 . FINDINGS: There is a PEG tube in place over the stomach, unchanged. The bowel gas pattern is nonspecific. Gaseous distention of the colon is noted but not abnormally dil ated. No free air is identified. Soft tissues have no evidence for mass shadows or calcifications. Lazo rgical clips in the left upper quadrant are again noted. The bony structures are intact. IMPRESSION: Nonspecific, nonobstructive bowel gas pattern with no acute process noted. This document is electronically signed by Thania Graf MD., August 07 2018 07:52:47 PM ET
--- NOTE | 2018-08-07 21:20 | Cat Scan Report ---
PROCEDURE: CT ABDOMEN PELVIS W CON TECHNIQUE: Following administration of IV contrast axial helical imaging was performed through the a bdomen and pelvis with sagittal and coronal reformatted images obtained. Delayed axial helical imagin g was also performed through the abdomen and pelvis. HISTORY: lower abd pain COMPARISONS: None FINDINGS: There is atelectasis in the dependent portion of the left lung base. The heart appears to be enlarged. The liver, spleen, right kidney and adrenal glands are unremarkable. The left kidney is absent with surgical clips in the left renal fossa. There is moderate to marked left hydroureter. There is no definite evidence of an obstructing stone. The gallbladder is moderately to markedly distended but otherwise unremarkable. There is dilatation of the pancreatic duct. The pancreas is otherwise unremarkable. A percutaneous gastrostomy tube is demonstrated with the tip in the stomach. There is moderate distention of the colon which contains air, fluid and stool with air-fluid levels. This may represent changes of enteritis. There is no evidence of bowel wall thickening or pericolic i nflammatory change to suggest the presence of colitis. The appendix is normal caliber and contains air. The small bowel is normal caliber. There is no evidence of pneumoperitoneum or free fluid. The abdominal aorta is normal caliber. There is no evidence of intra-abdominal adenopathy. The urinary bladder is moderately distended and unremarkable. The uterus is absent. The bony structures are notable for grade 1 anterolisthesis L4 on L5 and degenerative disc endplate c hange L5-S1 and degenerative facet change in the mid and lower lumbar spine. IMPRESSION: 1. Status post left nephrectomy. 2. Moderate to marked left hydroureter. 3. Dilatation of the pancreatic duct. 4. Percutaneous gastrostomy tube the tip in the stomach. 5. Colonic changes suggestive of enteritis. 6. Status post hysterectomy. 7. Spondylitic changes lumbar spine and grade 1 anterolisthesis L4 on L5. Comparison with previous CT abdomen and pelvis would be helpful. This document is electronically signed by Gisselle Amin MD., August 07 2018 09:18:02 PM ET
[2018-08-07 22:16] LABS: Bilirubin,Urine NEG (Negative); Blood,Urine SM (Negative); Color,Urine Straw (Yellow); Protein,Urine <15 mg/dL mg/dL (Negative); Urobilinogen,Urine < 2.0 mg/dL (<2.0); WBC,Urine < 1.0 /HPF (0.0-6.0)
[2018-08-08 00:39] VITALS: BP 125/59
== END 2018-08-07 23:00 | disposition home or self-care (01) ==
LOC: ED 16:41
DX: R10.30 Lower abdominal pain, unspecified (principal); I10 Essential (primary) hypertension; G43.909 Migraine, unspecified, not intractable, without status migrainosus; Z86.73 Personal history of transient ischemic attack (TIA), and cerebral infarction without residual deficits
CPT/HCPCS: 36415; 74019; 74177; 80053; 81001; 83690; 85025; 96374; 99285; J2270; J7030; Q9967

== ENCOUNTER 2018-10-31 12:21 | Emergency (ER) | payer MEDICARE ==
--- NOTE | 2018-10-31 12:37 | Emergency Department Report ---
Blank Doc - Documentation Documentation: 68 y/o trach patient wtih painfull right neck mass. Denies Chest pain but has some SOB Plan labs and CT
--- NOTE | 2018-10-31 13:53 | Emergency Department Report ---
ED General Adult HPI - General Chief complaint: Dizziness Stated complaint: GARY/KNOT UNDER CHIN Time Seen by Provider: 10/31/18 12:35 Source: patient Mode of arrival: Wheelchair Limitations: No Limitations - History of Present Illness Initial comments: Patient is a 68-year-old female who presents with a knot on the left side of her chest last 3 days. Patient also states that she feels a little dizzy than usual. Patient has a history of trach since the pain is a 5 out 10 nothing makes it better and nothing makes it worse. The pain does not radiate anywhere. - Related Data Home Medications Medication Instructions Recorded Confirmed Last Taken Amlodipine Besylate [Norvasc] 10 mg PO QDAY 09/15/17 09/15/17 Unknown Famotidine [Pepcid] 20 mg PO BID 09/15/17 09/15/17 Unknown Losartan/Hydrochlorothiazide 1 each PO QDAY 09/15/17 09/15/17 Unknown [Hyzaar 100-12.5 Tablet] Metoclopramide [Reglan ORAL LIQ] 10 ml PO QID 09/15/17 09/15/17 Unknown Sertraline HCl [Zoloft] 50 mg PO QDAY 09/15/17 09/15/17 Unknown Previous Rx's Medication Instructions Recorded Last Taken Type Bismuth Subsalicylate 30 ml FEEDTUBE QID PRN #240 ml 02/23/18 Unknown Rx [Pepto-Bismol] Ciprofloxacin HCl [Cipro] 500 mg FEEDTUBE BID #10 tablet 02/23/18 Unknown Rx Promethazine [Phenergan TAB] 25 mg FEEDTUBE Q6HR PRN #20 tab 02/23/18 Unknown Rx Allergies Allergy/AdvReac Type Severity Reaction Status Date / Time No Known Allergies Allergy Verified 10/31/18 12:23 ED Review of Systems ROS: Stated complaint: GARY/KNOT UNDER CHIN Other details as noted in HPI Constitutional: denies: chills, fever Eyes: denies: eye pain, eye discharge, vision change ENT: throat pain. denies: ear pain Respiratory: denies: cough, shortness of breath, wheezing Cardiovascular: denies: chest pain, palpitations Endocrine: no symptoms reported Gastrointestinal: denies: abdominal pain, nausea, diarrhea Genitourinary: denies: urgency, dysuria, discharge Musculoskeletal: denies: back pain, joint swelling, arthralgia Skin: denies: rash, lesions Neurological: denies: headache, weakness, paresthesias Psychiatric: denies: anxiety, depression Hematological/Lymphatic: denies: easy bleeding, easy bruising 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) Hx Headaches / Migraines: Yes Additional medical history: brain tumor - Surgical History Additional Surgical History: Nephrectomy, Hysterectomy, tracheostomy secondary to CVA, peg tube secondary to CVA - Social History Smoking Status: Former Smoker Substance Use Type: Prescribed - Medications Home Medications: Home Medications Medication Instructions Recorded Confirmed Last Taken Type Amlodipine Besylate [Norvasc] 10 mg PO QDAY 09/15/17 09/15/17 Unknown History Famotidine [Pepcid] 20 mg PO BID 09/15/17 09/15/17 Unknown History Losartan/Hydrochlorothiazide 1 each PO QDAY 09/15/17 09/15/17 Unknown History [Hyzaar 100-12.5 Tablet] Metoclopramide [Reglan ORAL LIQ] 10 ml PO QID 09/15/17 09/15/17 Unknown History Sertraline HCl [Zoloft] 50 mg PO QDAY 09/15/17 09/15/17 Unknown History Bismuth Subsalicylate 30 ml FEEDTUBE QID PRN #240 ml 02/23/18 Unknown Rx [Pepto-Bismol] Ciprofloxacin HCl [Cipro] 500 mg FEEDTUBE BID #10 tablet 02/23/18 Unknown Rx Promethazine [Phenergan TAB] 25 mg FEEDTUBE Q6HR PRN #20 tab 02/23/18 Unknown Rx ED Physical Exam - General Limitations: No Limitations ED Course Vital Signs 10/31/18 12:32 Temperature 98.4 F Pulse Rate 103 H Respiratory 18 Rate Blood Pressure 100/45 O2 Sat by Pulse 98 Oximetry ED Medical Decision Making - Lab Data Result diagrams: 10/31/18 13:35 10/31/18 13:35 Lab Results 10/31/18 10/31/18 Range/Units 13:35 13:35 WBC 6.7 (4.5-11.0) K/mm3 RBC 4.52 (3.65-5.03) M/mm3 Hgb 13.8 (10.1-14.3) gm/dl Hct 40.2 (30.3-42.9) % MCV 89 (79-97) fl MCH 31 (28-32) pg MCHC 34 (30-34) % RDW 13.2 (13.2-15.2) % Plt Count 242 (140-440) K/mm3 Lymph % (Auto) 18.9 (13.4-35.0) % [place] % (Auto) 6.3 (0.0-7.3) % Eos % (Auto) 5.1 H (0.0-4.3) % Baso % (Auto) 0.2 (0.0-1.8) % Lymph # 1.3 (1.2-5.4) K/mm3 [place] # 0.4 (0.0-0.8) K/mm3 Eos # 0.3 (0.0-0.4) K/mm3 Baso # 0.0 (0.0-0.1) K/mm3 Seg Neutrophils % 69.5 (40.0-70.0) % Seg Neutrophils # 4.7 (1.8-7.7) K/mm3 Sodium 139 (137-145) mmol/L Potassium 4.5 (3.6-5.0) mmol/L Chloride 98.7 (98-107) mmol/L Carbon Dioxide 27 (22-30) mmol/L Anion Gap 18 mmol/L BUN 21 H (7-17) mg/dL Creatinine 0.9 (0.7-1.2) mg/dL Estimated GFR > 60 ml/min BUN/Creatinine Ratio 23 % Glucose 97 (65-100) mg/dL Calcium 9.2 (8.4-10.2) mg/dL Total Bilirubin 0.70 (0.1-1.2) mg/dL AST 37 (5-40) units/L ALT 39 (7-56) units/L Alkaline Phosphatase 138 H (35-129) units/L Total Protein 7.4 (6.3-8.2) g/dL Albumin 3.9 (3.9-5) g/dL Albumin/Globulin Ratio 1.1 % - Radiology Data Radiology results: image reviewed - Medical Decision Making Chief medical diagnosis: Right neck abscess Differential medical diagnosis: Right neck cyst, periapical abscess I will get CT scan of neck, CBC, BMP and IV antibiotics Critical care attestation.: If time is entered above; I have spent that time in minutes in the direct care of this critically ill patient, excluding procedure time. ED Disposition Clinical Impression: Neck pain, Neck swelling Disposition: - TO HOME OR SELFCARE Is pt being admited?: No Does the pt Need Aspirin: No Condition: Stable Referrals: VERN BARFIELD MD [Staff Physician] - 3-5 Days
[2018-10-31 13:58] LABS: Basophils % (Auto) 0.2 % (0.0-1.8); Eosinophils # (Auto) 0.3 K/mm3 (0.0-0.4); Eosinophils % (Auto) 5.1 % (0.0-4.3); Hematocrit 40.2 % (30.3-42.9); Hemoglobin 13.8 gm/dl (10.1-14.3); Lymphocytes # (Auto) 1.3 K/mm3 (1.2-5.4); Lymphocytes % (Auto) 18.9 % (13.4-35.0); Mean Corpuscular HGB Conc 34 % (30-34); Mean Corpuscular Volume 89 fl (79-97); Monocytes # (Auto) 0.4 K/mm3 (0.0-0.8); Monocytes % (Auto) 6.3 % (0.0-7.3); Platelet Count 242 K/mm3 (140-440); Red Blood Count 4.52 M/mm3 (3.65-5.03); Red Cell Distribution Width 13.2 % (13.2-15.2)
[2018-10-31 14:11] LABS: Alanine Aminotransferase 39 units/L (7-56); Albumin 3.9 g/dL (3.9-5); BUN/Creatinine Ratio 23; Blood Urea Nitrogen 21 mg/dL (7-17); Calcium 9.2 mg/dL (8.4-10.2); Hemolysis Index 5
--- NOTE | 2018-10-31 17:33 | Cat Scan Report ---
PROCEDURE: CT NECK W CON TECHNIQUE: Computerized axial tomography of the soft tissue neck was performed following the IV inje ction of iodinated nonionic contrast. CT DOSE LENGTH PRODUCT: 478.5 mGycm HISTORY: painful mass to right/trach pt COMPARISONS: None . FINDINGS: Visualization of detail in portions of the neck is limited by streak artifact created by dental hardw are and cervical hardware. The right submandibular gland is enlarged and contains stones within the gland as well as the appeara nce of a stone near the origin of the right submandibular gland duct. There is inflammatory change in the soft tissues adjacent to the submandibular gland. The inflammator y process extends posteriorly to involve the right strap muscles with some edema in the intermuscular plane of the right strap muscles. There is extension into the deep soft tissue planes of the neck wi th mild stranding of the right parapharyngeal space fat. There is no evidence of a drainable collection/abscess. There are mildly prominent right cervical lymph nodes. These are nonspecific in appearance but are mo st likely inflammatory in nature. None demonstrate necrosis. There is no evidence of a drainable sebastian ection/abscess. The epiglottis and aryepiglottic folds are normal thickness. A tracheostomy tube is in place with the tip at the level of the clavicles. There is previous C4-C6 anterior discectomy and fusion with retained hardware. The visualized portions of the lung byrne are unremarkable. IMPRESSION: 1. Sialoadenitis of the right submandibular gland with inflammatory changes in the adjacent soft tiss ues extending into the right strap muscles and the deep soft tissue planes of the neck.. There are st ones within the submandibular gland one of which appears to be at the origin of the submandibular gla nd duct. 2. Tracheostomy tube projected to be in satisfactory position. 3. Previous C4-C6 anterior discectomy and fusion with retained hardware. This document is electronically signed by Gisselle Amin MD., October 31 2018 05:31:27 PM ET
[2018-10-31] MEDS ORDERED: TYLENOL PO ONE ×2 (17:52→17:54)
[2018-10-31] MEDS ORDERED: TYLENOL ONE ×3 (17:54→17:57)
[2018-10-31] MEDS ORDERED: UNASYN/NS 1.5 GM/50 ML 1.5 GM/50 ML BAG IV SCH (18:00)
[2018-10-31 18:25] VITALS: BP 120/43
== END 2018-10-31 19:59 | disposition home or self-care (01) ==
LOC: ED 12:21
DX: M54.2 Cervicalgia (principal); R07.89 Other chest pain; R42 Dizziness and giddiness; I10 Essential (primary) hypertension; Z86.73 Personal history of transient ischemic attack (TIA), and cerebral infarction without residual deficits; G43.909 Migraine, unspecified, not intractable, without status migrainosus; Z90.710 Acquired absence of both cervix and uterus; Z87.891 Personal history of nicotine dependence
CPT/HCPCS: 36415; 70491; 80053; 85025; 96365; 99284; J0295; Q9967

== ENCOUNTER 2019-05-04 09:33 | Emergency (ER) | payer MEDICARE ==
[2019-05-04] MEDS ORDERED: SODIUM CHLORIDE 0.9% 1000 ML 1,000 ML IV ONE (10:24)
--- NOTE | 2019-05-04 10:37 | XRay Report ---
CHEST 2 VIEWS INDICATION: chest pain and shortness of breath. COMPARISON: 09/15/2017 FINDINGS: Support devices: A tracheostomy tube is in satisfactory position and has been placed since the last e xam. Heart: Within normal limits. Pulmonary vasculature: Normal. Lungs/pleura: No acute air space or interstitial disease. No pneumothorax. Additional findings: None. IMPRESSION: 1. No acute findings. Signer Name: Jacinto Ray MD Signed: 05/04/2019 10:32 AM Workstation Name: [id number]
[2019-05-04 12:04] VITALS: BP 157/64
[2019-05-04 12:20] LABS: Basophils % (Auto) 0.4 % (0.0-1.8); Eosinophils # (Auto) 0.3 K/mm3 (0.0-0.4); Eosinophils % (Auto) 3.6 % (0.0-4.3); Hematocrit 42.4 % (30.3-42.9); Hemoglobin 14.5 gm/dl (10.1-14.3); Lymphocytes # (Auto) 1.6 K/mm3 (1.2-5.4); Lymphocytes % (Auto) 17.2 % (13.4-35.0); Mean Corpuscular HGB Conc 34 % (30-34); Mean Corpuscular Volume 90 fl (79-97); Monocytes # (Auto) 0.5 K/mm3 (0.0-0.8); Monocytes % (Auto) 5.7 % (0.0-7.3); Platelet Count 251 K/mm3 (140-440); Red Cell Distribution Width 13.4 % (13.2-15.2)
[2019-05-04 12:37] LABS: Alanine Aminotransferase 24 units/L (7-56); Albumin 4.4 g/dL (3.9-5); BUN/Creatinine Ratio 30; Blood Urea Nitrogen 18 mg/dL (7-17); Calcium 9.4 mg/dL (8.4-10.2); Hemolysis Index 20
[2019-05-04 12:42] LABS: Bilirubin,Direct < 0.2 mg/dL (0-0.2)
--- NOTE | 2019-05-04 14:28 | Emergency Department Report ---
ED General Adult HPI - General Chief complaint: Dyspnea/Respdistress Stated complaint: COUGH/CONGESTION Time Seen by Provider: 05/04/19 10:05 Source: patient Mode of arrival: Ambulatory Limitations: No Limitations - History of Present Illness Initial comments: This is a 69-year-old female with history of tracheostomy and G-tube for stroke. Despite this, she can answer questions appropriately. She is here because she has been coughing up sputum which is sometimes green. She does not complain of acute dyspnea. She did not appreciate fever or chills. She had some shortness of breath but no chest discomfort. She is not short of breath time of my exam. -: Gradual, days(s) Severity scale (0 -10): 0 Associated Symptoms: denies other symptoms - Related Data Home Medications Medication Instructions Recorded Confirmed Last Taken Amlodipine Besylate [Norvasc] 10 mg PO QDAY 09/15/17 09/15/17 Unknown Famotidine [Pepcid] 20 mg PO BID 09/15/17 09/15/17 Unknown Losartan/Hydrochlorothiazide 1 each PO QDAY 09/15/17 09/15/17 Unknown [Hyzaar 100-12.5 Tablet] Metoclopramide [Reglan ORAL LIQ] 10 ml PO QID 09/15/17 09/15/17 Unknown Sertraline HCl [Zoloft] 50 mg PO QDAY 09/15/17 09/15/17 Unknown Previous Rx's Medication Instructions Recorded Last Taken Type Bismuth Subsalicylate 30 ml FEEDTUBE QID PRN #240 ml 02/23/18 Unknown Rx [Pepto-Bismol] Ciprofloxacin HCl [Cipro] 500 mg FEEDTUBE BID #10 tablet 02/23/18 Unknown Rx Promethazine [Phenergan TAB] 25 mg FEEDTUBE Q6HR PRN #20 tab 02/23/18 Unknown Rx Amoxicillin/K Clav Oral Liqd 10 ml PO Q8H #300 ml 10/31/18 Unknown Rx [Augmentin 250-62.5 mg/5 ml] Azithromycin [Zithromax TAB] 250 mg PO QDAY #6 tablet 05/04/19 Unknown Rx Allergies Allergy/AdvReac Type Severity Reaction Status Date / Time No Known Allergies Allergy Verified 05/04/19 09:39 ED Review of Systems ROS: Stated complaint: COUGH/CONGESTION Other details as noted in HPI Constitutional: denies: chills, fever Eyes: denies: eye pain, eye discharge, vision change ENT: denies: ear pain, throat pain Respiratory: cough. 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) Hx Headaches / Migraines: Yes Additional medical history: brain tumor - Surgical History Past Surgical History?: Yes Additional Surgical History: Nephrectomy, Hysterectomy, tracheostomy secondary to CVA, peg tube secondary to CVA - Social History Smoking Status: Never Smoker Substance Use Type: None - Medications Home Medications: Home Medications Medication Instructions Recorded Confirmed Last Taken Type Amlodipine Besylate [Norvasc] 10 mg PO QDAY 09/15/17 09/15/17 Unknown History Famotidine [Pepcid] 20 mg PO BID 09/15/17 09/15/17 Unknown History Losartan/Hydrochlorothiazide 1 each PO QDAY 09/15/17 09/15/17 Unknown History [Hyzaar 100-12.5 Tablet] Metoclopramide [Reglan ORAL LIQ] 10 ml PO QID 09/15/17 09/15/17 Unknown History Sertraline HCl [Zoloft] 50 mg PO QDAY 09/15/17 09/15/17 Unknown History Bismuth Subsalicylate 30 ml FEEDTUBE QID PRN #240 ml 02/23/18 Unknown Rx [Pepto-Bismol] Ciprofloxacin HCl [Cipro] 500 mg FEEDTUBE BID #10 tablet 02/23/18 Unknown Rx Promethazine [Phenergan TAB] 25 mg FEEDTUBE Q6HR PRN #20 tab 02/23/18 Unknown Rx Amoxicillin/K Clav Oral Liqd 10 ml PO Q8H #300 ml 10/31/18 Unknown Rx [Augmentin 250-62.5 mg/5 ml] Azithromycin [Zithromax TAB] 250 mg PO QDAY #6 tablet 05/04/19 Unknown Rx ED Physical Exam - General Limitations: No Limitations General appearance: alert, in no apparent distress - Head Head exam: Present: atraumatic, normocephalic - Eye Eye exam: Present: normal appearance - ENT ENT exam: Present: mucous membranes moist - Neck Neck exam: Present: other (tracheostomy in place). Absent: tenderness, meningismus - Respiratory Respiratory exam: Present: normal lung sounds bilaterally. Absent: respiratory distress - Cardiovascular Cardiovascular Exam: Present: regular rate, normal rhythm. Absent: systolic murmur, diastolic murmur, rubs, gallop - GI/Abdominal GI/Abdominal exam: Present: soft, normal bowel sounds, other. Absent: distended, tenderness, guarding, rebound, rigid - Extremities Exam Extremities exam: Present: normal inspection - Back Exam Back exam: Present: normal inspection - Neurological Exam Neurological exam: Present: alert, oriented X3, CN II-XII intact. Absent: motor sensory deficit (gastrostomy) - Psychiatric Psychiatric exam: Present: normal affect, normal mood - Skin Skin exam: Present: warm, dry, intact, normal color. Absent: rash ED Course Vital Signs 05/04/19 05/04/19 05/04/19 09:36 10:04 11:59 Temperature 99.4 F Pulse Rate 126 H 97 H Respiratory 20 18 Rate Blood Pressure 139/56 Blood Pressure 117/60 157/64 [Right] O2 Sat by Pulse 95 95 Oximetry ED Medical Decision Making - Lab Data Result diagrams: 05/04/19 11:53 05/04/19 11:35 Laboratory Results - last 24 hr 05/04/19 05/04/19 11:35 11:53 WBC 9.1 RBC 4.70 Hgb 14.5 H Hct 42.4 MCV 90 MCH 31 MCHC 34 RDW 13.4 Plt Count 251 Lymph % (Auto) 17.2 [place] % (Auto) 5.7 Eos % (Auto) 3.6 Baso % (Auto) 0.4 Lymph # 1.6 [place] # 0.5 Eos # 0.3 Baso # 0.0 Seg Neutrophils % 73.1 H Seg Neutrophils # 6.6 Sodium 143 Potassium 4.5 Chloride 104.9 Carbon Dioxide 22 Anion Gap 21 BUN 18 H Creatinine 0.6 L Estimated GFR > 60 BUN/Creatinine Ratio 30 Glucose 81 Calcium 9.4 Magnesium 2.00 Total Bilirubin 0.70 Direct Bilirubin < 0.2 Indirect Bilirubin 0.5 AST 25 ALT 24 Alkaline Phosphatase 133 H Total Protein 6.9 Albumin 4.4 Albumin/Globulin Ratio 1.8 - Radiology Data Radiology results: report reviewed (no acute process) Critical care attestation.: If time is entered above; I have spent that time in minutes in the direct care of this critically ill patient, excluding procedure time. ED Disposition Clinical Impression: Acute bronchitis Qualifiers: Bronchitis organism: unspecified organism Qualified Code(s): J20.9 - Acute bronchitis, unspecified Disposition: TO HOME OR SELFCARE Is pt being admited?: No Does the pt Need Aspirin: No Condition: Stable Instructions: Acute Bronchitis (ED) Additional Instructions: Follow-up with your primary care physician. Return any acute change, fever, chills or difficulty breathing. Prescriptions: Azithromycin [Zithromax TAB] 250 mg PO QDAY #6 tablet Referrals: PRIMARY CARE [Primary Care Provider] - 3-5 Days Time of Disposition: 14:27
== END 2019-05-04 14:45 | disposition home or self-care (01) ==
LOC: ED 09:33
DX: J20.9 Acute bronchitis, unspecified (principal); G43.909 Migraine, unspecified, not intractable, without status migrainosus; I10 Essential (primary) hypertension; Z90.710 Acquired absence of both cervix and uterus; Z90.89 Acquired absence of other organs; Z79.899 Other long term (current) drug therapy
CPT/HCPCS: 36415; 71046; 80048; 80076; 83735; 85025; 93005; 93010; 96360; 99284; J7030

== ENCOUNTER 2019-06-23 09:18 | Emergency (ER) | payer MEDICARE ==
[2019-06-23] MEDS ORDERED: HYDROcodone/ACETAMINOPHEN 5-325 MG TAB PO ONE (09:43)
--- NOTE | 2019-06-23 09:51 | Emergency Department Report ---
HPI - General Chief Complaint: Neck Pain/Injury Time Seen by Provider: 06/23/19 09:32 - HPI HPI: Room 25 The patient is a 69-year-old female present with a chief complaint of neck mass. The patient states she started having a sore throat noticing slight swelling to the right side of her neck yesterday. Patient states swelling was much worse this morning when she awakened. Patient denies any preceding trauma or history of fever. Patient gives her pain a score of 10/10 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) Hx Headaches / Migraines: Yes Additional medical history: brain tumor - Surgical History Past Surgical History?: Yes Additional Surgical History: Nephrectomy, Hysterectomy, tracheostomy secondary t o CVA, peg tube secondary to CVA - Family History Family history: no significant - Social History Smoking Status: Never Smoker Substance Use Type: None - Medications Home Medications: Home Medications Medication Instructions Recorded Confirmed Last Taken Type Amlodipine Besylate [Norvasc] 10 mg PO QDAY 09/15/17 09/15/17 Unknown History Famotidine [Pepcid] 20 mg PO BID 09/15/17 09/15/17 Unknown History Losartan/Hydrochlorothiazide 1 each PO QDAY 09/15/17 09/15/17 Unknown History [Hyzaar 100-12.5 Tablet] Metoclopramide [Reglan ORAL LIQ] 10 ml PO QID 09/15/17 09/15/17 Unknown History Sertraline HCl [Zoloft] 50 mg PO QDAY 09/15/17 09/15/17 Unknown History Bismuth Subsalicylate 30 ml FEEDTUBE QID PRN #240 ml 02/23/18 Unknown Rx [Pepto-Bismol] Ciprofloxacin HCl [Cipro] 500 mg FEEDTUBE BID #10 tablet 02/23/18 Unknown Rx Promethazine [Phenergan TAB] 25 mg FEEDTUBE Q6HR PRN #20 tab 02/23/18 Unknown Rx Amoxicillin/K Clav Oral Liqd 10 ml PO Q8H #300 ml 10/31/18 Unknown Rx [Augmentin 250-62.5 mg/5 ml] Azithromycin [Zithromax TAB] 250 mg PO QDAY #6 tablet 12/24/19 Unknown Rx Clindamycin [Clindamycin CAP] 300 mg PO Q6H #28 capsule 06/23/19 Unknown Rx HYDROcodone/APAP 5-325 [[place] 1 - 2 each PO Q6HR PRN #14 tablet 06/23/19 Unknown Rx 5/325] Ibuprofen [Motrin 800 MG tab] 800 mg PO Q8HR PRN #20 tablet 06/23/19 Unknown Rx ED Review of Systems ROS: Stated complaint: RT SIDE LUMP CHIN/PAIN Other details as noted in HPI Constitutional: no symptoms reported. denies: fever Eyes: denies: eye pain ENT: throat pain Respiratory: denies: cough Cardiovascular: denies: chest pain Physical Exam - Physical Exam Vital Signs: Vital Signs 06/23/19 09:20 Temperature 98.9 F Pulse Rate 108 H Respiratory 18 Rate Blood Pressure 145/64 O2 Sat by Pulse 98 Oximetry Physical Exam: GEN: WD WN female lying on stretcher in NAD HEENT: NCAT, EOMI NECK: trachea midline PULM: CTA bilat. No resp distress noted CV: rrr no m/r/g ABD: s/nt/nd SKIN: no diaphoresis NEURO: GCS 15 MUSCULOSKELETAL: No evidence of acute injury ED Course Vital Signs 06/23/19 09:20 Temperature 98.9 F Pulse Rate 108 H Respiratory 18 Rate Blood Pressure 145/64 O2 Sat by Pulse 98 Oximetry ED Medical Decision Making - Lab Data Result diagrams: 06/23/19 10:53 06/23/19 10:53 Laboratory Tests 06/23/19 06/23/19 10:53 10:53 WBC 8.3 RBC 4.72 Hgb 14.4 H Hct 42.3 MCV 90 MCH 31 MCHC 34 RDW 13.4 Plt Count 231 Lymph % (Auto) 17.9 [place] % (Auto) 7.0 Eos % (Auto) 3.6 Baso % (Auto) 0.3 Lymph # 1.5 [place] # 0.6 Eos # 0.3 Baso # 0.0 Seg Neutrophils % 71.2 H Seg Neutrophils # 5.9 Sodium 139 Potassium 3.8 Chloride 100.2 Carbon Dioxide 22 Anion Gap 21 BUN 13 Creatinine 0.7 Estimated GFR > 60 BUN/Creatinine Ratio 19 Glucose 86 Calcium 9.6 Amylase 69 - Radiology Data Radiology results: report reviewed (CT neck), image reviewed (CT neck) [facility] [address] [place] [address] Cat Scan Report Signed Patient: JULIO C HERNANDEZ MR# : [id number] : [birth year] Acct:[id number] Age/Sex: 69 / F ADM Date: 06/23/19 Loc: ED Attending Dr: Ordering Physician: CANDELARIA ZHONG MD Date of Service: 06/23/19 Procedure(s): CT neck w con Accession Number(s): [id number] cc: CANDELARIA ZHONG MD CT neck w con INDICATION / CLINICAL INFORMATION: 69 years Female; Right submandibular swelling and pain. TECHNIQUE: Contiguous thin cut axial images obtained through the neck following IV contrast. Sagittal and coronal reconstructions performed by the technologist. All CT scans at this location are performed using CT dose reduction for ALARA by means of automated exposure control. Motion artifact. COMPARISON: 10/31/2018 FINDINGS: Right sublingual gland is swollen. Small sialol ith noted. Surrounding soft tissue edema/cellulitis noted. No signs of abscess. Findings are concerning for sialoadenitis. Similar type appearance seen on prior exam. Mildly prominent right level 2 lymph node seen which also mildly enhanced- presumably reactive. MUCOSAL SPACE: There is mildly prominent soft tissue in the nasopharynx leftward of midline-direct visual inspection of this region may be of benefit. Fossa of Rosenmuller is partially obliterated on the left and well visualized on the right. However, overall, I believe the likelihood of the lesion in this region is less likely. Otherwise, the nasopharynx, oropharynx and vallecula, oral cavity and floor of mouth, hypopharynx, and larynx are grossly normal. LYMPH NODES: No other significant adenopathy appreciated. SALIVARY GLANDS: Parotid, submandibular, and visualized sublingual glands are within normal limits. THYROID GLAND: Unremarkable. PARANASAL SINUSES: There is mild to moderate mucosal thickening in the ethmoids. Partial opacification of the mastoids and middle ear cavity noted on the right. There is also mucosal thicken ing in the right maxillary antrum. SPINE: Anterior fusion hardware seen from C3 through C5. 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 There may be a soft tissue lesion in the jugular foramen region on the right-similar findings suggested on prior. However, this finding has expanded in size when compared with prior CT of the neck from 05/21/2008. Underlying, nonaggr essive lesion in this location cannot be excluded, such as a schwannoma. Certainly, there is not a adjacent permeative pattern which would be seen in a glomus type tumor. Pre and postcontrast MRI of the neck may be of benefit. Tracheostomy tube noted. IMPRESSION: 1. Findings consistent with submandibular sialoadenitis on the right. There is associated sialoliths. Similar findings seen on prior exam. 2. Sinus disease noted. 3. Prominent enhancing soft tissue seen in the jugular foramen region, as described above. 4. Mildly prominent soft tissue is seen in the nasopharynx on the left, as described above-direct visual inspection may be of benefit. Signer Name: Bhaskar Dalton MD, III Signed: 04/2020 2:41 PM Workstation Name: [id number] Transcribed By: Dictated By: Bhaskar Dalton MD Electronically Authenticated By: Bhaskar Dalton MD Signed Date/Time: 06/23/19 1441 DD/ 1424 TD/TT: - Differential Diagnosis Sialoadenitis, sialolithiasis, Kevin's angina, pharyngitis Critical care attestation.: If time is entered above; I have spent that time in minutes in the direct care of this critically ill patient, excluding procedure time. ED Disposition Clinical Impression: Acute sialoadenitis Disposition: DC- TO HOME OR SELFCARE Is pt being admited?: No Does the pt Need Aspirin: No Condition: Stable Instructions: Sialoadenitis (ED) Prescriptions: Clindamycin [Clindamycin CAP] 300 mg PO Q6H #28 capsule Ibuprofen [Motrin 800 MG tab] 800 mg PO Q8HR PRN #20 tablet PRN Reason: Pain, Moderate (4-6) HYDROcodone/APAP 5-325 [[place] 5/325] 1 - 2 each PO Q6HR PRN #14 tablet PRN Reason: Pain Referrals: CARMELA BARNES MD [Primary Care Provider] - 3-5 Days COLT SHEARER MD [Staff Physician] - 2-3 Days (Dr Shearer is an audiovisual tech (ear nose and throat doctor). Please follow-up with her for further evaluation) Time of Disposition: 14:58
[2019-06-23 11:12] LABS: Basophils % (Auto) 0.3 % (0.0-1.8); Eosinophils # (Auto) 0.3 K/mm3 (0.0-0.4); Eosinophils % (Auto) 3.6 % (0.0-4.3); Hematocrit 42.3 % (30.3-42.9); Hemoglobin 14.4 gm/dl (10.1-14.3); Lymphocytes # (Auto) 1.5 K/mm3 (1.2-5.4); Lymphocytes % (Auto) 17.9 % (13.4-35.0); Mean Corpuscular HGB Conc 34 % (30-34); Mean Corpuscular Volume 90 fl (79-97); Monocytes # (Auto) 0.6 K/mm3 (0.0-0.8); Platelet Count 231 K/mm3 (140-440); Red Blood Count 4.72 M/mm3 (3.65-5.03); Red Cell Distribution Width 13.4 % (13.2-15.2)
[2019-06-23 11:33] LABS: BUN/Creatinine Ratio 19; Blood Urea Nitrogen 13 mg/dL (7-17); Calcium 9.6 mg/dL (8.4-10.2); Hemolysis Index 34
[2019-06-23] MEDS ORDERED: fentaNYL 100 MCG/2 ML INJ IV ONE (12:14)
--- NOTE | 2019-06-23 14:45 | Cat Scan Report ---
CT neck w con INDICATION / CLINICAL INFORMATION: 69 years Female; Right submandibular swelling and pain. TECHNIQUE: Contiguous thin cut axial images obtained through the neck following IV contrast. Sagittal and zhu l reconstructions performed by the technologist. All CT scans at this location are performed using CT dose reduction for ALARA by means of automated exposure control. Motion artifact. COMPARISON: 10/31/2018 FINDINGS: Right sublingual gland is swollen. Small sialolith noted. Surrounding soft tissue edema/rikki lulitis noted. No signs of abscess. Findings are concerning for sialoadenitis. Similar type appearanc e seen on prior exam. Mildly prominent right level 2 lymph node seen which also mildly enhanced-presu mably reactive. MUCOSAL SPACE: There is mildly prominent soft tissue in the nasopharynx leftward of midline-direct vi sual inspection of this region may be of benefit. Fossa of Rosenmuller is partially obliterated on th e left and well visualized on the right. However, overall, I believe the likelihood of the lesion in this region is less likely. Otherwise, the nasopharynx, oropharynx and vallecula, oral cavity and floor of mouth, hypopharynx, an d larynx are grossly normal. LYMPH NODES: No other significant adenopathy appreciated. SALIVARY GLANDS: Parotid, submandibular, and visualized sublingual glands are within normal limits. THYROID GLAND: Unremarkable. PARANASAL SINUSES: There is mild to moderate mucosal thickening in the ethmoids. Partial opacificatio n of the mastoids and middle ear cavity noted on the right. There is also mucosal thickening in the r ight maxillary antrum. SPINE: Anterior fusion hardware seen from C3 through C5. 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 There may be a soft tissu e lesion in the jugular foramen region on the right-similar findings suggested on prior. However, thi s finding has expanded in size when compared with prior CT of the neck from 05/21/2008. Underlying, no naggressive lesion in this location cannot be excluded, such as a schwannoma. Certainly, there is not a adjacent permeative pattern which would be seen in a glomus type tumor. Pre and postcontrast MRI o f the neck may be of benefit. Tracheostomy tube noted. IMPRESSION: 1. Findings consistent with submandibular sialoadenitis on the right. There is associated sialoliths. Similar findings seen on prior exam. 2. Sinus disease noted. 3. Prominent enhancing soft tissue seen in the jugular foramen region, as described above. 4. Mildly prominent soft tissue is seen in the nasopharynx on the left, as described above-direct vis ual inspection may be of benefit. Signer Name: Bhaskar Dalton MD, III Signed: 06/23/2019 2:41 PM Workstation Name: [id number]
[2019-06-23 15:10] VITALS: BP 136/56
== END 2019-06-23 15:16 | disposition home or self-care (01) ==
LOC: ED 09:18
DX: K11.21 Acute sialoadenitis (principal); I10 Essential (primary) hypertension; G43.909 Migraine, unspecified, not intractable, without status migrainosus; Z98.890 Other specified postprocedural states; Z90.710 Acquired absence of both cervix and uterus; Z86.73 Personal history of transient ischemic attack (TIA), and cerebral infarction without residual deficits; Z79.899 Other long term (current) drug therapy
CPT/HCPCS: 36415; 70491; 80048; 82150; 85025; 99284; J3010; Q9967

== ENCOUNTER 2019-06-28 19:15 | Emergency (ER) | payer MEDICARE ==
--- NOTE | 2019-06-28 19:56 | Emergency Department Report ---
{null, Blank Doc - Documentation Documentation: 69-year-old female that presents with clogged G-tube. This initial assessment/diagnostic orders/clinical plan/treatment(s) is/are subject to change based on patient's health status, clinical progression and re- assessment by fellow clinical providers in the ED. Further treatment and workup at subsequent clinical providers discretion. Patient/guardians urged not to elope from the ED as their condition may be serious if not clinically assessed and managed. Initial orders include: 1- Patient sent to MAIN ED for further evaluation and treatment }
[2019-06-28 20:02] VITALS: BP 100/58
--- NOTE | 2019-06-28 22:14 | Emergency Department Report ---
{null, HPI - General Chief Complaint: Abdominal Pain Time Seen by Provider: 06/28/19 19:55 - HPI HPI: Room 38 The patient is a 69-year-old female present with chief complaint of clogged feeding tube. Patient has history of a G-tube in place secondary to previous CVA. The patient states her feeding tube is been clogged today since noon she is been unable to pass anything. 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) Hx Headaches / Migraines: Yes Additional medical history: brain tumor - Surgical History Additional Surgical History: Nephrectomy, Hysterectomy, tracheostomy secondary to CVA, peg tube secondary to CVA - Family History Family history: no significant - Social History Smoking Status: Never Smoker Substance Use Type: None - Medications Home Medications: Home Medications Medication Instructions Recorded Confirmed Last Taken Type Amlodipine Besylate [Norvasc] 10 mg PO QDAY 09/15/17 09/15/17 Unknown History Famotidine [Pepcid] 20 mg PO BID 09/15/17 09/15/17 Unknown History Losartan/Hydrochlorothiazide 1 each PO QDAY 09/15/17 09/15/17 Unknown History [Hyzaar 100-12.5 Tablet] Metoclopramide [Reglan ORAL LIQ] 10 ml PO QID 09/15/17 09/15/17 Unknown History Sertraline HCl [Zoloft] 50 mg PO QDAY 09/15/17 09/15/17 Unknown History Bismuth Subsalicylate 30 ml FEEDTUBE QID PRN #240 ml 02/23/18 Unknown Rx [Pepto-Bismol] Ciprofloxacin HCl [Cipro] 500 mg FEEDTUBE BID #10 tablet 02/23/18 Unknown Rx Promethazine [Phenergan TAB] 25 mg FEEDTUBE Q6HR PRN #20 tab 02/23/18 Unknown Rx Amoxicillin/K Clav Oral Liqd 10 ml PO Q8H #300 ml 10/31/18 Unknown Rx [Augmentin 250-62.5 mg/5 ml] Azithromycin [Zithromax TAB] 250 mg PO QDAY #6 tablet 05/04/19 Unknown Rx Clindamycin [Clindamycin CAP] 300 mg PO Q6H #28 capsule 06/23/19 Unknown Rx HYDROcodone/APAP 5-325 [[place] 1 - 2 each PO Q6HR PRN #14 tablet 06/23/19 Unknown Rx 5/325] Ibuprofen [Motrin 800 MG tab] 800 mg PO Q8HR PRN #20 tablet 06/23/19 Unknown Rx ED Review of Systems ROS: Stated complaint: G-TUBE CLOGGED Other details as noted in HPI Constitutional: no symptoms reported Eyes: denies: eye pain ENT: denies: throat pain Respiratory: no symptoms reported Cardiovascular: denies: chest pain Endocrine: no symptoms reported Gastrointestinal: denies: abdominal pain Physical Exam - Physical Exam Vital Signs: Vital Signs 06/28/19 06/28/19 19:28 19:58 Temperature 99.1 F 99.1 F Pulse Rate 97 H 99 H Respiratory 18 18 Rate Blood Pressure 100/48 100/58 O2 Sat by Pulse 96 96 Oximetry Physical Exam: GENERAL: The patient is well-developed well-nourished female lying on stretcher not appearing to be in acute distress. [] HEENT: Normocephalic. Atraumatic. Extraocular motions are intact. Patient has moist mucous membranes. NECK: Supple. Tracheostomy present Pulmonary: No respiratory distress ABDOMEN: Abdomen is soft, nontender. Patient has normal bowel sounds. There is no abdominal distention. SKIN: There is no rash. There is no edema. There is no diaphoresis. NEURO: The patient is awake, alert, and oriented. The patient is cooperative. The patient has normal speech MUSCULOSKELETAL: There is no evidence of acute injury. ED Course Vital Signs 06/28/19 06/28/19 19:28 19:58 Temperature 99.1 F 99.1 F Pulse Rate 97 H 99 H Respiratory 18 18 Rate Blood Pressure 100/48 100/58 O2 Sat by Pulse 96 96 Oximetry - Feeding Tube Replacement Reason for Replacement: not functioning/damaged Initial Tube Inserted: greater than 4 weeks Type of Tube: gastrostomy Use of Tube: medications and feeding Insertion Site Prior to Procedure: clean Tube Used for Reinsertion: other (18 [place]) [place] Tube Size (F): 18 Balloon Size (mls): 10 Verification of Placement: gastrograffin injection Tube Secured by: G-tube attachment device Patient Tolerated Procedure: no complications ED Medical Decision Making - Radiology Data Radiology results: image reviewed (G-tube study) interpreted by me: G-tube study-stomach and bowel highlighted with contrast. G-tube in appropriate position - Differential Diagnosis G-tube replacement Critical care attestation.: If time is entered above; I have spent that time in minutes in the direct care of this critically ill patient, excluding procedure time. ED Disposition Clinical Impression: Gastrostomy tube dysfunction Disposition: TO HOME OR SELFCARE Is pt being admited?: No Does the pt Need Aspirin: No Condition: Stable Instructions: Abdominal Pain (ED) Additional Instructions: Return to the emergency department should you develop worsening symptoms, inability to tolerate food or liquids, high fever or any other concerns Referrals: PRIMARY CARE, [Primary Care Provider] - 3-5 Days Time of Disposition: 23:01 }
--- NOTE | 2019-06-28 23:07 | XRay Report ---
{null, ABDOMEN 1 VIEW(S) INDICATION / CLINICAL INFORMATION: G-tube replaced. COMPARISON: None available. FINDINGS: TUBES / LINES: Gastrostomy tube is in the stomach. Injected contrast is in the stomach and small freya l. BOWEL GAS PATTERN/EXTRALUMINAL GAS: No significant abnormality. No pneumatosis or secondary signs of free air. ADDITIONAL FINDINGS: No significant additional findings. IMPRESSION: 1. No acute abnormality. Signer Name: Dylan Gomez MD Signed: 06/28/2019 11:02 PM Workstation Name: [id number] }
== END 2019-06-28 23:14 | disposition home or self-care (01) ==
LOC: ED 19:15
DX: Z43.1 Encounter for attention to gastrostomy (principal); I10 Essential (primary) hypertension; G43.909 Migraine, unspecified, not intractable, without status migrainosus; Z86.73 Personal history of transient ischemic attack (TIA), and cerebral infarction without residual deficits; Z79.899 Other long term (current) drug therapy
CPT/HCPCS: 43762; 74018; 99282; Q9967

== ENCOUNTER 2020-01-02 11:08 | Emergency (ER) | payer MEDICARE ==
--- NOTE | 2020-01-02 12:01 | Emergency Department Report ---
Blank Doc - Documentation Documentation: 69-year-old female that presents with generlized abdomina pain and dizziness. Tachycardia in the triage. This initial assessment/diagnostic orders/clinical plan/treatment(s) is/are subject to change based on patient's health status, clinical progression and re- assessment by fellow clinical providers in the ED. Further treatment and workup at subsequent clinical providers discretion. Patient/guardians urged not to elope from the ED as their condition may be serious if not clinically assessed and managed. Initial orders include: 1- Patient sent to MAIN ED for further evaluation and treatment 2- EKG 3- labs
[2020-01-02] MEDS ORDERED: MORPHINE 4 MG/1 ML INJ IM ONE (12:40)
[2020-01-02] MEDS ORDERED: ONDANSETRON 4 MG/2 ML INJ IM ONE (12:40)
--- NOTE | 2020-01-02 12:52 | Emergency Department Report ---
ED General Adult HPI - General Chief complaint: Pain General Stated complaint: STOMACH TUBE Time Seen by Provider: 01/02/20 11:58 Source: patient Mode of arrival: Ambulatory Limitations: No Limitations - History of Present Illness Initial comments: Ms. Sharp is a 69 years old female with history of CVA, status post tracheostomy and PEG tube placement. Patient presented to the ER complaining of pain around her PEG tube and also stated that her PEG tube is not working well. Patient stated that PEG tube was placed 3 months ago. Patient denied any fever or chills. Patient also denied any nausea or vomiting. Patient denied any cough or shortness of breath. No abdominal pain except around the PEG tube area. -: days(s) (3) Severity scale (0 -10): 8 - Related Data Home Medications Medication Instructions Recorded Confirmed Last Taken Amlodipine Besylate [Norvasc] 10 mg PO QDAY 09/15/17 09/15/17 Unknown Famotidine [Pepcid] 20 mg PO BID 09/15/17 09/15/17 Unknown Losartan/Hydrochlorothiazide 1 each PO QDAY 09/15/17 09/15/17 Unknown [Hyzaar 100-12.5 Tablet] Metoclopramide [Reglan ORAL LIQ] 10 ml PO QID 09/15/17 09/15/17 Unknown Sertraline HCl [Zoloft] 50 mg PO QDAY 09/15/17 09/15/17 Unknown Previous Rx's Medication Instructions Recorded Last Taken Type Bismuth Subsalicylate 30 ml FEEDTUBE QID PRN #240 ml 02/23/18 Unknown Rx [Pepto-Bismol] Ciprofloxacin HCl [Cipro] 500 mg FEEDTUBE BID #10 tablet 02/23/18 Unknown Rx Promethazine [Phenergan TAB] 25 mg FEEDTUBE Q6HR PRN #20 tab 02/23/18 Unknown Rx Amoxicillin/K Clav Oral Liqd 10 ml PO Q8H #300 ml 10/31/18 Unknown Rx [Augmentin 250-62.5 mg/5 ml] Azithromycin [Zithromax TAB] 250 mg PO QDAY #6 tablet 05/04/19 Unknown Rx Clindamycin [Clindamycin CAP] 300 mg PO Q6H #28 capsule 06/23/19 Unknown Rx HYDROcodone/APAP 5-325 [[place] 1 - 2 each PO Q6HR PRN #14 tablet 06/23/19 Unknown Rx 5/325] Ibuprofen [Motrin 800 MG tab] 800 mg PO Q8HR PRN #20 tablet 06/23/19 Unknown Rx Ciprofloxacin HCl [Ciprofloxacin 500 mg PO Q12HR #14 tab 10/12/19 Unknown Rx TAB] HYDROcodone/APAP 5-325 [[place] 1 each PO Q6HR PRN #14 tablet 10/12/19 Unknown Rx 5/325] Ondansetron [Zofran Odt] 4 mg PO Q8HR PRN #14 tab.rapdis 10/12/19 Unknown Rx Acetamin/Codeine 120-12Mg/5 ml 10 ml PO TID PRN #12 dose 12/10/19 Unknown Rx [Tylenol/Codeine] Allergies Allergy/AdvReac Type Severity Reaction Status Date / Time No Known Allergies Allergy Verified 12/10/19 11:50 ED Review of Systems ROS: Stated complaint: STOMACH TUBE Other details as noted in HPI Comment: All other systems reviewed and negative Constitutional: denies: chills, fever Respiratory: denies: cough, shortness of breath, SOB with exertion, SOB at rest, wheezing Gastrointestinal: denies: abdominal pain, nausea, vomiting, diarrhea, constipation, hematemesis, melena, hematochezia Musculoskeletal: denies: back pain Neurological: denies: headache, weakness, numbness, paresthesias, confusion 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) Hx Headaches / Migraines: Yes Additional medical history: brain tumor - Surgical History Past Surgical History?: Yes Additional Surgical History: Nephrectomy, Hysterectomy, tracheostomy secondary to CVA, peg tube secondary to CVA - Social History Smoking Status: Never Smoker Substance Use Type: None - Medications Home Medications: Home Medications Medication Instructions Recorded Confirmed Last Taken Type Amlodipine Besylate [Norvasc] 10 mg PO QDAY 09/15/17 09/15/17 Unknown History Famotidine [Pepcid] 20 mg PO BID 09/15/17 09/15/17 Unknown History Losartan/Hydrochlorothiazide 1 each PO QDAY 18 09/15/17 Unknown History [Hyzaar 100-12.5 Tablet] Metoclopramide [Reglan ORAL LIQ] 10 ml PO QID 09/15/17 09/15/17 Unknown History Sertraline HCl [Zoloft] 50 mg PO QDAY 09/15/17 09/15/17 Unknown History Bismuth Subsalicylate 30 ml FEEDTUBE QID PRN #240 ml 02/23/18 Unknown Rx [Pepto-Bismol] Ciprofloxacin HCl [Cipro] 500 mg FEEDTUBE BID #10 tablet 02/23/18 Unknown Rx Promethazine [Phenergan TAB] 25 mg FEEDTUBE Q6HR PRN #20 tab 02/23/18 Unknown Rx Amoxicillin/K Clav Oral Liqd 10 ml PO Q8H #300 ml 10/31/18 Unknown Rx [Augmentin 250-62.5 mg/5 ml] Azithromycin [Zithromax TAB] 250 mg PO QDAY #6 tablet 05/04/19 Unknown Rx Clindamycin [Clindamycin CAP] 300 mg PO Q6H #28 capsule 06/23/19 Unknown Rx HYDROcodone/APAP 5-325 [[place] 1 - 2 each PO Q6HR PRN #14 tablet 06/23/19 Unknown Rx 5/325] Ibuprofen [Motrin 800 MG tab] 800 mg PO Q8HR PRN #20 tablet 06/23/19 Unknown Rx Ciprofloxacin HCl [Ciprofloxacin 500 mg PO Q12HR #14 tab 10/12/19 Unknown Rx TAB] HYDROcodone/APAP 5-325 [[place] 1 each PO Q6HR PRN #14 tablet 10/12/19 Unknown Rx 5/325] Ondansetron [Zofran Odt] 4 mg PO Q8HR PRN #14 tab.rapdis 10/12/19 Unknown Rx Acetamin/Codeine 120-12Mg/5 ml 10 ml PO TID PRN #12 dose 12/10/19 Unknown Rx [Tylenol/Codeine] ED Physical Exam - General Limitations: No Limitations General appearance: alert, in no apparent distress - Head Head exam: Present: atraumatic, normocephalic, normal inspection - Eye Eye exam: Present: normal appearance - ENT ENT exam: Present: normal exam, normal orophraynx, mucous membranes moist - Neck Neck exam: Present: normal inspection, full ROM. Absent: tenderness, meningismus, lymphadenopathy, thyromegaly - Respiratory Respiratory exam: Present: normal lung sounds bilaterally - Cardiovascular Cardiovascular Exam: Present: regular rate (Patient heart rate on exam is 85 beats per minutes.), normal rhythm, normal heart sounds - GI/Abdominal GI/Abdominal exam: Present: soft, tenderness (Around the PEG tube. No erythema or discharge appreciated.), normal bowel sounds. Absent: distended, guarding, rebound, rigid, organomegaly, mass, bruit, pulsatile mass, hernia - Extremities Exam Extremities exam: Present: normal inspection - Back Exam Back exam: Present: normal inspection, full ROM. Absent: CVA tenderness (R), CVA tenderness (L) - Neurological Exam Neurological exam: Present: alert, oriented X3 - Skin Skin exam: Present: warm, normal color ED Course Vital Signs 01/02/20 01/02/20 01/02/20 11:12 12:04 12:35 Temperature 97.8 F 98.3 F 98.3 F Pulse Rate 125 H 112 H 87 Respiratory 16 20 16 Rate Blood Pressure Blood Pressure 99/64 111/54 111/65 [Left] O2 Sat by Pulse 96 99 100 Oximetry 01/02/20 01/02/20 12:38 13:00 Temperature Pulse Rate 79 Respiratory 16 9 L Rate Blood Pressure 116/59 Blood Pressure [Left] O2 Sat by Pulse 100 98 Oximetry - Feeding Tube Replacement Reason for Replacement: not functioning/damaged Initial Tube Inserted: greater than 4 weeks Type of Tube: gastrostomy Use of Tube: feedings only, medications and feeding Insertion Site Prior to Procedure: clean Tube Used for Reinsertion: other [place] Tube Size (F): 18 Verification of Placement: auscultation Patient Tolerated Procedure: well, no complications ED Medical Decision Making - Lab Data Result diagrams: 01/02/20 12:22 01/02/20 12:22 - EKG Data -: EKG Interpreted by [place] EKG shows normal: sinus rhythm Rate: normal - EKG Data Interpretation: no acute changes - Medical Decision Making Ms. Sharp is a 69 years old female with history of CVA, status post tracheostomy and PEG tube placement. Patient presented to the ER complaining of pain around her PEG tube and also stated that her PEG tube is not working well. Patient stated that PEG tube was placed 3 months ago. Patient denied any fever or chills. Patient also denied any nausea or vomiting. Patient denied any cough or shortness of breath. No abdominal pain except around the PEG tube area. Patient received morphine and Zofran. Patient stated that she is feeling much better. Labs reviewed and is unremarkable. PEG tube replaced by me same size 18 [place] with no difficulties. Patient advised to follow-up with her primary care physician in the next 2 to 3 days and to return to the ER if he develop any new symptoms. Critical care attestation.: If time is entered above; I have spent that time in minutes in the direct care of this critically ill patient, excluding procedure time. ED Disposition Clinical Impression: Total body pain, Gastrostomy tube obstruction Disposition: TO HOME OR SELFCARE Is pt being admited?: No Condition: Stable Instructions: How to Use and Care for Your PEG Tube (ED) Referrals: CARMELA BARNES MD [Primary Care Provider] - 3-5 Days
[2020-01-02 12:57] LABS: Basophils % (Auto) 0.5 % (0.0-1.8); Eosinophils # (Auto) 0.3 K/mm3 (0.0-0.4); Eosinophils % (Auto) 4.5 % (0.0-4.3); Hemoglobin 15.6 gm/dl (10.1-14.3); Lymphocytes # (Auto) 1.6 K/mm3 (1.2-5.4); Lymphocytes % (Auto) 23.4 % (13.4-35.0); Mean Corpuscular HGB Conc 34 % (30-34); Mean Corpuscular Volume 93 fl (79-97); Monocytes # (Auto) 0.4 K/mm3 (0.0-0.8); Monocytes % (Auto) 6.4 % (0.0-7.3); Platelet Count 474 K/mm3 (140-440); Red Blood Count 4.92 M/mm3 (3.65-5.03); Red Cell Distribution Width 15.6 % (13.2-15.2)
[2020-01-02 13:06] LABS: INR 0.98 (0.87-1.13)
[2020-01-02 13:07] LABS: Partial Thromboplastin Time 29.1 Sec. (24.2-36.6)
[2020-01-02 13:08] LABS: Bacteria,Urine 2+ /HPF (Negative); Bilirubin,Urine NEG (Negative); Blood,Urine NEG (Negative); Color,Urine Yellow (Yellow); Mucus,Urine 2+ /HPF; Urobilinogen,Urine < 2.0 mg/dL (<2.0)
[2020-01-02 13:17] LABS: BUN/Creatinine Ratio 24; Blood Urea Nitrogen 19 mg/dL (7-17); Calcium 9.9 mg/dL (8.4-10.2); Hemolysis Index 13
[2020-01-02 15:05] VITALS: BP 129/72
== END 2020-01-02 15:02 | disposition home or self-care (01) ==
LOC: ED 11:08
DX: T85.598A Other mechanical complication of other gastrointestinal prosthetic devices, implants and grafts, initial encounter (principal); R52 Pain, unspecified; I10 Essential (primary) hypertension; G43.909 Migraine, unspecified, not intractable, without status migrainosus; Z86.73 Personal history of transient ischemic attack (TIA), and cerebral infarction without residual deficits; Z90.710 Acquired absence of both cervix and uterus; Z90.89 Acquired absence of other organs; Z98.890 Other specified postprocedural states; Z79.1 Long term (current) use of non-steroidal anti-inflammatories (NSAID); Z79.2 Long term (current) use of antibiotics; Z79.899 Other long term (current) drug therapy; Y92.89 Other specified places as the place of occurrence of the external cause
CPT/HCPCS: 36415; 43762; 80048; 81001; 83690; 85025; 85610; 85730; 87086; 93005; 96372; 99284; J2270; J2405

== ENCOUNTER 2020-04-13 11:17 | Emergency (ER) | payer MEDICARE ==
--- NOTE | 2020-04-13 11:54 | Emergency Department Report ---
HPI - General Chief Complaint: Rectal Pain Time Seen by Provider: 04/13/20 11:20 - HPI HPI: Room 9 The patient is a 70-year-old female present with a chief complaint of rectal pain and bleeding. The patient states she developed rectal pain and spasms and bleeding from the rectum yesterday. Patient states she also developed lower abdominal pain yesterday. Patient states her last bowel movement occurred approximately 2 days ago. Patient denies nausea vomiting or fever. 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) Hx Headaches / Migraines: Yes Additional medical history: brain tumor - Surgical History Past Surgical History?: Yes Additional Surgical History: Nephrectomy, Hysterectomy, tracheostomy secondary t o CVA, peg tube secondary to CVA - Family History Family history: no significant - Social History Smoking Status: Never Smoker Substance Use Type: None (Denies illicit drug use) - Medications Home Medications: Home Medications Medication Instructions Recorded Confirmed Last Taken Type Amlodipine Besylate [Norvasc] 10 mg PO QDAY 09/15/17 09/15/17 Unknown History Famotidine [Pepcid] 20 mg PO BID 09/15/17 09/15/17 Unknown History Losartan/Hydrochlorothiazide 1 each PO QDAY 09/15/17 09/15/17 Unknown History [Hyzaar 100-12.5 Tablet] Metoclopramide [Reglan ORAL LIQ] 10 ml PO QID 09/15/17 09/15/17 Unknown History Sertraline HCl [Zoloft] 50 mg PO QDAY 09/15/17 09/15/17 Unknown History Bismuth Subsalicylate 30 ml FEEDTUBE QID PRN #240 ml 02/23/18 Unknown Rx [Pepto-Bismol] Ciprofloxacin HCl [Cipro] 500 mg FEEDTUBE BID #10 tablet 02/23/18 Unknown Rx Promethazine [Phenergan TAB] 25 mg FEEDTUBE Q6HR PRN #20 tab 02/23/18 Unknown Rx Amoxicillin/K Clav Oral Liqd 10 ml PO Q8H #300 ml 10/31/18 Unknown Rx [Augmentin 250-62.5 mg/5 ml] Azithromycin [Zithromax TAB] 250 mg PO QDAY #6 tablet 05/04/19 Unknown Rx Clindamycin [Clindamycin CAP] 300 mg PO Q6H #28 capsule 06/23/19 Unknown Rx HYDROcodone/APAP 5-325 [[place] 1 - 2 each PO Q6HR PRN #14 tablet 06/23/19 Unknown Rx 5/325] Ibuprofen [Motrin 800 MG tab] 800 mg PO Q8HR PRN #20 tablet 06/23/19 Unknown Rx Ciprofloxacin HCl [Ciprofloxacin 500 mg PO Q12HR #14 tab 10/12/19 Unknown Rx TAB] HYDROcodone/APAP 5-325 [[place] 1 each PO Q6HR PRN #14 tablet 10/12/19 Unknown Rx 5/325] Ondansetron [Zofran Odt] 4 mg PO Q8HR PRN #14 tab.rapdis 10/12/19 Unknown Rx Acetamin/Codeine 120-12Mg/5 ml 10 ml PO TID PRN #12 dose 12/10/19 Unknown Rx [Tylenol/Codeine] Ondansetron [Zofran Odt] 4 mg PO Q8HR PRN #14 tab.rapdis 01/02/20 Unknown Rx traMADoL [Ultram 50 MG tab] 50 mg PO Q4HR PRN #14 tablet 01/02/20 Unknown Rx Docusate Sodium [Colace] 100 mg PO BID #60 capsule 04/13/20 Unknown Rx HYDROcodone/APAP 5-325 [[place] 1 - 2 each PO Q6HR PRN #14 tablet 04/13/20 Unknown Rx 5/325] Mesalamine 1,000 mg RC QHS #14 supp.rect 04/13/20 Unknown Rx ED Review of Systems ROS: Stated complaint: RECTAL PAIN/BLEED Other details as noted in HPI Constitutional: denies: fever Eyes: denies: eye pain ENT: denies: throat pain Respiratory: no symptoms reported Cardiovascular: denies: chest pain Endocrine: no symptoms reported Gastrointestinal: abdominal pain, constipation, hematochezia. denies: nausea, vomiting Genitourinary: denies: dysuria Musculoskeletal: denies: back pain Neurological: denies: headache Physical Exam - Physical Exam Vital Signs: Vital Signs 04/13/20 11:18 Temperature 99.7 F H Pulse Rate 129 H Respiratory 18 Rate Blood Pressure 86/67 O2 Sat by Pulse 96 Oximetry Physical Exam: GENERAL: The patient is well-developed well-nourished female lying on stretcher not appearing to be in acute distress. [] HEENT: Normocephalic. Atraumatic. Extraocular motions are intact. Patient has moist mucous membranes. NECK: Supple. Trach in place CHEST/LUNGS: Clear to auscultation. There is no respiratory distress noted. HEART/CARDIOVASCULAR: Regular. There is no tachycardia. There is no gallop rub or murmur. ABDOMEN: Abdomen is soft, with discomfort to palpation in the suprapubic and left upper quadrant. Patient has normal bowel sounds. There is no abdominal distention. SKIN: There is no rash. There is no edema. There is no diaphoresis. NEURO: The patient is awake, alert, and oriented. The patient is cooperative. Patient has left-sided weakness from previous CVA. The patient has normal speech MUSCULOSKELETAL: There is no evidence of acute injury. RECTAL: Light brown/gardiner stool. Guaiac positive. External hemorrhoid visualized ED Course Vital Signs 04/13/20 11:18 Temperature 99.7 F H Pulse Rate 129 H Respiratory 18 Rate Blood Pressure 86/67 O2 Sat by Pulse 96 Oximetry - Reevaluation(s) Reevaluation #1: 04/13/20 12:47 Patient has had 2 bowel movements in the ED both light brown/gardiner in color - Consultations Consultation #1: 04/13/20 15:32 GI paged 04/13/20 15:[address] Jessica-no diarrhea or elevated white count no need for antibiotics. Recommends Canasa suppository daily for 2 weeks and follow-up in the office ED Medical Decision Making - Lab Data Result diagrams: 04/13/20 11:48 04/13/20 11:48 Laboratory Tests 04/13/20 04/13/20 04/13/20 11:48 11:48 11:48 WBC 5.3 RBC 4.30 Hgb 14.1 Hct 42.0 MCV 98 H MCH 33 H MCHC 34 RDW 14.4 Plt Count 273 Lymph % (Auto) 18.5 [place] % (Auto) 3.8 Eos % (Auto) 3.9 Baso % (Auto) 0.3 Lymph # (Auto) 1.0 L [place] # (Auto) 0.2 Eos # (Auto) 0.2 Baso # (Auto) 0.0 Seg Neutrophils % 73.5 H Seg Neutrophils # 3.9 PT 13.3 INR 1.02 APTT 27.9 Sodium 137 Potassium 3.8 Chloride 107.5 H Carbon Dioxide 21 L Anion Gap 12 BUN 13 Creatinine 0.7 Estimated GFR > 60 BUN/Creatinine Ratio 19 Glucose 105 H Calcium 9.4 Total Bilirubin 0.40 AST 17 ALT 11 Alkaline Phosphatase 128 Total Protein 6.6 Albumin 3.3 L Albumin/Globulin Ratio 1.0 Urine Color Urine Turbidity Urine pH Ur Specific [place] Urine Protein Urine Glucose (UA) Urine Ketones Urine Blood Urine Nitrite Urine Bilirubin Urine Urobilinogen Ur Leukocyte Esterase Urine WBC (Auto) Urine RBC (Auto) Urine Mucus Blood Type Antibody Screen 04/13/20 04/13/20 11:51 15:14 WBC RBC Hgb Hct MCV MCH MCHC RDW Plt Count Lymph % (Auto) [place] % (Auto) Eos % (Auto) Baso % (Auto) Lymph # (Auto) [place] # (Auto) Eos # (Auto) Baso # (Auto) Seg Neutrophils % Seg Neutrophils # PT INR APTT Sodium Potassium Chloride Carbon Dioxide Anion Gap BUN Creatinine Estimated GFR BUN/Creatinine Ratio Glucose Calcium Total Bilirubin AST ALT Alkaline Phosphatase Total Protein Albumin Albumin/Globulin Ratio Urine Color Yellow Urine Turbidity Clear Urine pH 5.0 Ur Specific [place] 1.034 H Urine Protein <15 mg/dl Urine Glucose (UA) Neg Urine Ketones Neg Urine Blood Neg Urine Nitrite Neg Urine Bilirubin Neg Urine Urobilinogen < 2.0 Ur Leukocyte Esterase Neg Urine WBC (Auto) 1.0 Urine RBC (Auto) 6.0 Urine Mucus Few Blood Type O POSITIVE Antibody Screen Negative - Radiology Data Radiology results: report reviewed (CT abdomen pelvis), image reviewed (CT abdomen pelvis) [place] [address] Cat Scan Report Signed Patient: JULIO C HERNANDEZ MR# : [id number] : 1950 Acct:[id number] Age/Sex: 70 / F ADM Date: 04/13/20 Loc: ED Attending Dr: Ordering Physician: CANDELARIA ZHONG MD Date of Service: 04/13/20 Procedure(s): CT abdomen pelvis w con Accession Number(s): [id number] cc: CANDELARIA ZHONG MD CT ABDOMEN AND PELVIS WITH CONTRAST INDICATION / CLINICAL INFORMATION: Lower abdominal and rectal pain. TECHNIQUE: Axial CT images were obtained through the abdomen and pelvis after IV contrast. All CT scans at this location are performed using CT dose reduction for ALARA by means of automated exposure control. COMPARISON: 12/10/2019 FINDINGS: LOWER CHEST: Mild bilateral lung base atelectasis. LIVER: No significant abnormality. GALLBLADDER: No significant abnormality. BILE DUCTS: Mild prominence of the intra and extrahepatic biliary ducts. There is minimal distention of the common bile duct measuring 9 mm at its greatest diameter. No evidence of calcified cholelithiasis or acute cholecystitis. These findings are not significantly changed since 12/10/2019. PANCREAS: Dilatation is noted of the pancreatic duct measuring 5 mm in its greatest diameter. No evidence of parenchymal lesion. SPLEEN: No significant abnormality. ADRENALS: No significant abnormality. RIGHT KIDNEY / URETER: No significant abnormality. LEFT KIDNEY / URETER: Post surgical findings consistent with left nephrectomy are stable since prior exam. Left ureter remnant is again noted to be dilated and fluid-filled, unchanged since 12/10/2019. STOMACH / SMALL BOWEL: Gastrostomy tube in stable position. COLON: Interval development of concentric mural thickening of the rectum, now measuring approximately 1.9 cm in its greatest diameter. Additionally there is perirectal fat stranding and inflammatory changes. The entire colon and rectum are filled with fecal material and minimally distended. Mild redundancy is noted of the sigmoid colon. APPENDIX: No significant abnormality. PERITONEUM: No free fluid. No free air. No complex fluid collection. LYMPH NODES: No significant adenopathy. AORTA / ARTERIES: No significant abnormality. IVC / VEINS: No significant abnormality. URINARY BLADDER: No significant abnormality. REPRODUCTIVE ORGANS: Postsurgical findings consistent with prior hysterectomy are unchanged prior exam. ADDITIONAL FINDINGS: None. SKELETAL SYSTEM: Multilevel degenerative changes are noted of the spine. There is mild anterolisthesis at L4-L5. Intervertebral disc degenerative changes are noted most prominent at L5-S1. Facet arthropathy is noted at L4-L5 and L5-S1. No aggressive lesions. IMPRESSION: 1. Interval development of infectious/inflammatory proctitis described in detail above. 2. Abundant fecal material noted throughout the colon and rectal vault. Clinical correlation for constipation is recommended. 3. Persistent prominence of the intra and extra hepatic biliary ducts with mild dilatation of the pancreatic duct, relatively unchanged since prior exam. Nonemergent workup with MRCP may be helpful for further characterization. 4. Gastrostomy tube in stable position. 5. Postsurgical changes are stable since prior exam. Signer Name: Denver Mccrary MD Signed: 04/13/2020 3:18 PM Workstation Name: [id number] Transcribed By: Dictated By: DENVER MCCRARY Electronically Authenticated By: DENVER MCCRARY Signed Date/Time: 04/13/20 1518 DD/ 1504 TD/TT: - Differential Diagnosis Hemorrhoids, proctitis, diverticulitis Critical care attestation.: If time is entered above; I have spent that time in minutes in the direct care of this critically ill patient, excluding procedure time. ED Disposition Clinical Impression: Proctitis, External hemorrhoid Disposition: DC- TO HOME OR SELFCARE Is pt being admited?: No Does the pt Need Aspirin: No Condition: Stable Additional Instructions: Return to the emergency department should you develop worsening symptoms, inability to tolerate food or liquids, high fever or any other concerns Prescriptions: Docusate Sodium [Colace] 100 mg PO BID #60 capsule Mesalamine 1,000 mg RC QHS #14 supp.rect HYDROcodone/APAP 5-325 [[place] 5/325] 1 - 2 each PO Q6HR PRN #14 tablet PRN Reason: Pain Referrals: MORGAN PADILLA [Other] - 3-5 Days EZEKIEL JESSICA MD [Staff Physician] - 7-10 days (Dr. 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 Please follow-up with him for further evaluation) Time of Disposition: 16:13
[2020-04-13] MEDS ORDERED: SODIUM CHLORIDE 0.9% 1000 ML 1,000 ML IV ONE (11:56)
[2020-04-13 12:42] LABS: Basophils % (Auto) 0.3 % (0.0-1.8); Eosinophils # (Auto) 0.2 K/mm3 (0.0-0.4); Eosinophils % (Auto) 3.9 % (0.0-4.3); Hemoglobin 14.1 gm/dl (10.1-14.3); Lymphocytes % (Auto) 18.5 % (13.4-35.0); Mean Corpuscular HGB Conc 34 % (30-34); Mean Corpuscular Volume 98 fl (79-97); Monocytes # (Auto) 0.2 K/mm3 (0.0-0.8); Monocytes % (Auto) 3.8 % (0.0-7.3); Platelet Count 273 K/mm3 (140-440); Red Cell Distribution Width 14.4 % (13.2-15.2)
[2020-04-13 12:51] LABS: INR 1.02 (0.87-1.13); Partial Thromboplastin Time 27.9 Sec. (24.2-36.6)
[2020-04-13 13:03] LABS: Alanine Aminotransferase 11 units/L (7-56); Albumin 3.3 g/dL (3.9-5); Blood Urea Nitrogen 13 mg/dL (7-17); Calcium 9.4 mg/dL (8.4-10.2); Hemolysis Index 25
[2020-04-13 13:21] LABS: BUN/Creatinine Ratio 19
[2020-04-13] MEDS ORDERED: ONDANSETRON 4 MG/2 ML INJ IV ONE (14:38)
[2020-04-13] MEDS ORDERED: fentaNYL 100 MCG/2 ML INJ IV ONE (14:38)
--- NOTE | 2020-04-13 15:22 | Cat Scan Report ---
CT ABDOMEN AND PELVIS WITH CONTRAST INDICATION / CLINICAL INFORMATION: Lower abdominal and rectal pain. TECHNIQUE: Axial CT images were obtained through the abdomen and pelvis after IV contrast. All CT scans at this location are performed using CT dose reduction for ALARA by means of automated exposure control. COMPARISON: 12/10/2019 FINDINGS: LOWER CHEST: Mild bilateral lung base atelectasis. LIVER: No significant abnormality. GALLBLADDER: No significant abnormality. BILE DUCTS: Mild prominence of the intra and extrahepatic biliary ducts. There is minimal distention of the common bile duct measuring 9 mm at its greatest diameter. No evidence of calcified cholelithia sis or acute cholecystitis. These findings are not significantly changed since 12/10/2019. PANCREAS: Dilatation is noted of the pancreatic duct measuring 5 mm in its greatest diameter. No evid ence of parenchymal lesion. SPLEEN: No significant abnormality. ADRENALS: No significant abnormality. RIGHT KIDNEY / URETER: No significant abnormality. LEFT KIDNEY / URETER: Post surgical findings consistent with left nephrectomy are stable since prior exam. Left ureter remnant is again noted to be dilated and fluid-filled, unchanged since 12/10/2019. STOMACH / SMALL BOWEL: Gastrostomy tube in stable position. COLON: Interval development of concentric mural thickening of the rectum, now measuring approximately 1.9 cm in its greatest diameter. Additionally there is perirectal fat stranding and inflammatory alberta nges. The entire colon and rectum are filled with fecal material and minimally distended. Mild redund priscila is noted of the sigmoid colon. APPENDIX: No significant abnormality. PERITONEUM: No free fluid. No free air. No complex fluid collection. LYMPH NODES: No significant adenopathy. AORTA / ARTERIES: No significant abnormality. IVC / VEINS: No significant abnormality. URINARY BLADDER: No significant abnormality. REPRODUCTIVE ORGANS: Postsurgical findings consistent with prior hysterectomy are unchanged prior exa m. ADDITIONAL FINDINGS: None. SKELETAL SYSTEM: Multilevel degenerative changes are noted of the spine. There is mild anterolisthesi s at L4-L5. Intervertebral disc degenerative changes are noted most prominent at L5-S1. Facet arthrop athy is noted at L4-L5 and L5-S1. No aggressive lesions. IMPRESSION: 1. Interval development of infectious/inflammatory proctitis described in detail above. 2. Abundant fecal material noted throughout the colon and rectal vault. Clinical correlation for cons tipation is recommended. 3. Persistent prominence of the intra and extra hepatic biliary ducts with mild dilatation of the reddy creatic duct, relatively unchanged since prior exam. Nonemergent workup with MRCP may be helpful for further characterization. 4. Gastrostomy tube in stable position. 5. Postsurgical changes are stable since prior exam. Signer Name: Denver Lomas MD Signed: 04/13/2020 3:18 PM Workstation Name: [id number]
[2020-04-13 15:41] LABS: Bilirubin,Urine NEG (Negative); Blood,Urine NEG (Negative); Color,Urine Yellow (Yellow); Mucus,Urine FEW /HPF; Protein,Urine <15 mg/dL mg/dL (Negative); Urobilinogen,Urine < 2.0 mg/dL (<2.0)
[2020-04-13 17:11] VITALS: BP 138/62
== END 2020-04-13 17:16 | disposition home or self-care (01) ==
LOC: ED 11:17
DX: K64.4 Residual hemorrhoidal skin tags (principal); K62.89 Other specified diseases of anus and rectum; I10 Essential (primary) hypertension; G43.909 Migraine, unspecified, not intractable, without status migrainosus; Z86.73 Personal history of transient ischemic attack (TIA), and cerebral infarction without residual deficits; Z98.890 Other specified postprocedural states; Z79.1 Long term (current) use of non-steroidal anti-inflammatories (NSAID); Z79.2 Long term (current) use of antibiotics; Z79.899 Other long term (current) drug therapy
CPT/HCPCS: 36415; 74177; 80053; 81001; 82271; 85025; 85610; 85730; 86850; 86900; 86901; 96361; 96374; 96375; 99284; J2405; J3010; J7030; Q9967

== ENCOUNTER 2020-05-15 10:22 | Emergency (ER) | payer MEDICARE ==
--- NOTE | 2020-05-15 10:30 | Emergency Department Report ---
Blank Doc - Documentation Documentation: 70-year-old female that presents with abdominal pain with n/v. This initial assessment/diagnostic orders/clinical plan/treatment(s) is/are subject to change based on patient's health status, clinical progression and re- assessment by fellow clinical providers in the ED. Further treatment and workup at subsequent clinical providers discretion. Patient/guardians urged not to elope from the ED as their condition may be serious if not clinically assessed and managed. Initial orders include: 1- Patient sent to [facility] for further evaluation and treatment 2- labs 3- UA
[2020-05-15 12:52] LABS: Basophils % (Auto) 0.3 % (0.0-1.8); Eosinophils # (Auto) 0.4 K/mm3 (0.0-0.4); Eosinophils % (Auto) 9.1 % (0.0-4.3); Hematocrit 44.1 % (30.3-42.9); Hemoglobin 14.5 gm/dl (10.1-14.3); Lymphocytes # (Auto) 1.7 K/mm3 (1.2-5.4); Mean Corpuscular HGB Conc 33 % (30-34); Mean Corpuscular Volume 97 fl (79-97); Monocytes # (Auto) 0.3 K/mm3 (0.0-0.8); Monocytes % (Auto) 6.4 % (0.0-7.3); Platelet Count 321 K/mm3 (140-440); Red Blood Count 4.52 M/mm3 (3.65-5.03); Red Cell Distribution Width 14.7 % (13.2-15.2)
[2020-05-15 13:01] LABS: Alanine Aminotransferase 22 units/L (7-56); Albumin 3.5 g/dL (3.9-5); Blood Urea Nitrogen 15 mg/dL (7-17); Calcium 9.8 mg/dL (8.4-10.2); Hemolysis Index 10
[2020-05-15 13:02] LABS: BUN/Creatinine Ratio 21
[2020-05-15] MEDS ORDERED: SODIUM CHLORIDE 0.9% 500 ML 500 ML IV ONE (15:12)
[2020-05-15] MEDS ORDERED: MORPHINE 2 MG/1 ML INJ IV ONE (15:12)
--- NOTE | 2020-05-15 15:13 | Emergency Department Report ---
ED General Adult HPI - General Chief complaint: Abdominal Pain Stated complaint: ABD PAIN, DIARRHEA PUI?: No Time Seen by Provider: 05/15/20 10:29 Source: patient, RN notes reviewed, old records reviewed Mode of arrival: Ambulatory Limitations: No Limitations - History of Present Illness Initial comments: The patient was evaluated in the emergency department for symptoms described in the history of present illness. He/she was evaluated in the context of the global COVID-19 pandemic, which necessitated consideration that the patient might be at risk for infection with the virus that causes COVID-19. Institutional protocols and algorithms that pertain to the evaluation of patients at risk for COVID-19 are in a state of rapid change based on information released by regulatory bodies including the CDC and federal and [facility] organizations. These policies and algorithms were followed during the patient's care in the emergency department. Please note that these policies, procedures and recommendations changed on a rapid basis. 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 Patient presents to the ER today with a complaint of diffuse abdominal pain, and watery diarrhea. No recent antibiotic use. Abdominal pain is "all over." Denies headache, neck pain, chest pain, shortness of breath, vomiting. States that when she gives herself feeds or medications through her PEG tube, "it makes my stomach hurt more." She also endorses that when she takes her feeds, it increases her pain. She reports 3 episodes of brown stool today. No blood. She is not sure if she is having dysuria. -: Gradual, hour(s) Location: abdomen Quality: aching Consistency: intermittent Improves with: rest Worsens with: movement - Related Data Home Medications Medication Instructions Recorded Confirmed Last Taken Amlodipine Besylate [Norvasc] 10 mg PO QDAY 09/15/17 09/15/17 Unknown Famotidine [Pepcid] 20 mg PO BID 09/15/17 09/15/17 Unknown Losartan/Hydrochlorothiazide 1 each PO QDAY 09/15/17 09/15/17 Unknown [Hyzaar 100-12.5 Tablet] Metoclopramide [Reglan ORAL LIQ] 10 ml PO QID 09/15/17 09/15/17 Unknown Sertraline HCl [Zoloft] 50 mg PO QDAY 09/15/17 09/15/17 Unknown Previous Rx's Medication Instructions Recorded Last Taken Type Bismuth Subsalicylate 30 ml FEEDTUBE QID PRN #240 ml 02/23/18 Unknown Rx [Pepto-Bismol] Ciprofloxacin HCl [Cipro] 500 mg FEEDTUBE BID #10 tablet 02/23/18 Unknown Rx Promethazine [Phenergan TAB] 25 mg FEEDTUBE Q6HR PRN #20 tab 02/23/18 Unknown Rx Amoxicillin/K Clav Oral Liqd 10 ml PO Q8H #300 ml 10/31/18 Unknown Rx [Augmentin 250-62.5 mg/5 ml] Azithromycin [Zithromax TAB] 250 mg PO QDAY #6 tablet 05/04/19 Unknown Rx Clindamycin [Clindamycin CAP] 300 mg PO Q6H #28 capsule 06/23/19 Unknown Rx Ciprofloxacin HCl [Ciprofloxacin 500 mg PO Q12HR #14 tab 10/12/19 Unknown Rx TAB] Ondansetron [Zofran Odt] 4 mg PO Q8HR PRN #14 tab.rapdis 10/12/19 Unknown Rx Ondansetron [Zofran Odt] 4 mg PO Q8HR PRN #14 tab.rapdis 01/02/20 Unknown Rx Docusate Sodium [Colace] 100 mg PO BID #60 capsule 04/13/20 Unknown Rx Mesalamine 1,000 mg RC QHS #14 supp.rect 04/13/20 Unknown Rx polyethylene glycoL 3350 [Miralax 17 gm PO QDAY #30 packet 05/15/20 Unknown Rx 3350] Allergies Allergy/AdvReac Type Severity Reaction Status Date / Time No Known Allergies Allergy Verified 12/10/19 11:50 ED Review of Systems ROS: Stated complaint: ABD PAIN, DIARRHEA Other details as noted in HPI Constitutional: denies: fever Eyes: denies: eye discharge ENT: denies: epistaxis Respiratory: denies: cough Cardiovascular: denies: chest pain Gastrointestinal: abdominal pain, diarrhea. 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) Hx Headaches / Migraines: Yes Additional medical history: brain tumor - Surgical History Past Surgical History?: Yes Additional Surgical History: Nephrectomy, Hysterectomy, tracheostomy secondary to CVA, peg tube secondary to CVA - Social History Smoking Status: Never Smoker Substance Use Type: None (Denies illicit drug use) - Medications Home Medications: Home Medications Medication Instructions Recorded Confirmed Last Taken Type Amlodipine Besylate [Norvasc] 10 mg PO QDAY 09/15/17 09/15/17 Unknown History Famotidine [Pepcid] 20 mg PO BID 09/15/17 09/15/17 Unknown History Losartan/Hydrochlorothiazide 1 each PO QDAY 09/15/17 09/15/17 Unknown History [Hyzaar 100-12.5 Tablet] Metoclopramide [Reglan ORAL LIQ] 10 ml PO QID 09/15/17 09/15/17 Unknown History Sertraline HCl [Zoloft] 50 mg PO QDAY 09/15/17 09/15/17 Unknown History Bismuth Subsalicylate 30 ml FEEDTUBE QID PRN #240 ml 02/23/18 Unknown Rx [Pepto-Bismol] Ciprofloxacin HCl [Cipro] 500 mg FEEDTUBE BID #10 tablet 02/23/18 Unknown Rx Promethazine [Phenergan TAB] 25 mg FEEDTUBE Q6HR PRN #20 tab 02/23/18 Unknown Rx Amoxicillin/K Clav Oral Liqd 10 ml PO Q8H #300 ml 10/31/18 Unknown Rx [Augmentin 250-62.5 mg/5 ml] Azithromycin [Zithromax TAB] 250 mg PO QDAY #6 tablet 05/04/19 Unknown Rx Clindamycin [Clindamycin CAP] 300 mg PO Q6H #28 capsule 06/23/19 Unknown Rx Ciprofloxacin HCl [Ciprofloxacin 500 mg PO Q12HR #14 tab 10/12/19 Unknown Rx TAB] Ondansetron [Zofran Odt] 4 mg PO Q8HR PRN #14 tab.rapdis 10/12/19 Unknown Rx Ondansetron [Zofran Odt] 4 mg PO Q8HR PRN #14 tab.rapdis 01/02/20 Unknown Rx Docusate Sodium [Colace] 100 mg PO BID #60 capsule 04/13/20 Unknown Rx Mesalamine 1,000 mg RC QHS #14 supp.rect 04/13/20 Unknown Rx polyethylene glycoL 3350 [Miralax 17 gm PO QDAY #30 packet 05/15/20 Unknown Rx 3350] ED Physical Exam - General Limitations: Other (Patient is very hard of hearing.) General appearance: alert, in no apparent distress - Head Head exam: Present: atraumatic, normocephalic - Eye Eye exam: Present: normal appearance, EOMI. Absent: nystagmus - ENT ENT exam: Present: normal exam, normal orophraynx, mucous membranes moist, normal external ear exam - Neck Neck exam: Present: normal inspection, full ROM, other (Tracheostomy in place, without redness, pus or streaking). Absent: tenderness, meningismus - Respiratory Respiratory exam: Present: normal lung sounds bilaterally. Absent: respiratory distress, wheezes, rales, rhonchi, stridor, decreased breath sounds - Cardiovascular Cardiovascular Exam: Present: regular rate, normal rhythm, normal heart sounds. Absent: bradycardia, tachycardia, irregular rhythm, systolic murmur, diastolic murmur, rubs, gallop - GI/Abdominal GI/Abdominal exam: Present: soft, tenderness, other (There is mild abdominal tenderness. There is a PEG tube in place in the left mid quadrant, without redness, pus or streaking). Absent: distended, guarding, rebound, rigid, pulsatile mass - Extremities Exam Extremities exam: Present: normal inspection, full ROM, other (2+ pulses noted in the bilateral upper and lower extremities. There is no palpable cord. negative Homans sign. Muscular compartments are soft. The pelvis is stable.). Absent: pedal edema, calf tenderness - Back Exam Back exam: Present: normal inspection. Absent: tenderness, CVA tenderness (R), CVA tenderness (L), paraspinal tenderness, vertebral tenderness - Neurological Exam Neurological exam: Present: alert, normal gait, other (No facial droop. Tongue midline. Extraocular movements intact bilaterally. Facial sensation intact to light touch in V1, V2, V3 distribution bilaterally. 5 and a 5 strength in 4 extremities. Sensation intact to light touch in 4 extremities.) - Psychiatric Psychiatric exam: Present: anxious - Skin Skin exam: Present: warm, dry, intact, normal color. Absent: rash ED Course Vital Signs 05/15/20 10:31 Temperature 98.3 F Pulse Rate 107 H Respiratory 18 Rate Blood Pressure 154/77 [Right] O2 Sat by Pulse 99 Oximetry - Reevaluation(s) Reevaluation #1: 05/15/20 16:33 Differential diagnosis, including but not limited to: Enteritis, colitis, diverticulitis, feeding tube malposition Assessment and plan: 70-year-old female, who is afebrile, with reassuring vital signs, presenting with a complaint of 3 episodes of diarrhea, and pain with her feeding tube. Plan is to treat patient's symptoms, obtain appropriate laboratory studies, CT scan of the abdomen pelvis, and reassess. Have discussed this plan of care with the patient, who verbalized understanding, and who is amenable to this plan of care. 05/15/20 17:[address] scan of the abdomen pelvis suggest constipation without complication. Feeding tube appears to be in place. Urinalysis not suggestive of urinary tract infection. No active vomiting or diarrhea while here in the emergency room. She can manage her constipation expectantly as an outpatient. 05/15/20 17:37 - EJ/Peripheral Line Arm R Time Out Performed: Yes Indications: nurses unable to establis Skin Cleansed in Sterile Fashion: Yes Size: 20 Dressing Placed: Tegaderm Patient Tolerated Procedure: well ED Medical Decision Making - Lab Data Result diagrams: 05/15/20 11:22 05/15/20 11:22 Vital Signs 05/15/20 10:31 Temperature 98.3 F Pulse Rate 107 H Respiratory 18 Rate Blood Pressure 154/77 [Right] O2 Sat by Pulse 99 Oximetry Lab Results 05/15/20 05/15/20 Range/Units 11:22 11:22 WBC 4.5 (4.5-11.0) K/mm3 RBC 4.52 (3.65-5.03) M/mm3 Hgb 14.5 H (10.1-14.3) gm/dl Hct 44.1 H (30.3-42.9) % MCV 97 (79-97) fl MCH 32 (28-32) pg MCHC 33 (30-34) % RDW 14.7 (13.2-15.2) % Plt Count 321 (140-440) K/mm3 Lymph % (Auto) 38.0 H (13.4-35.0) % Garvin % (Auto) 6.4 (0.0-7.3) % Eos % (Auto) 9.1 H (0.0-4.3) % Baso % (Auto) 0.3 (0.0-1.8) % Lymph # (Auto) 1.7 (1.2-5.4) K/mm3 Garvin # (Auto) 0.3 (0.0-0.8) K/mm3 Eos # (Auto) 0.4 (0.0-0.4) K/mm3 Baso # (Auto) 0.0 (0.0-0.1) K/mm3 Seg Neutrophils % 46.2 (40.0-70.0) % Seg Neutrophils # 2.1 (1.8-7.7) K/mm3 Sodium 141 (137-145) mmol/L Potassium 4.4 (3.6-5.0) mmol/L Chloride 109.2 H (98-107) mmol/L Carbon Dioxide 21 L (22-30) mmol/L Anion Gap 15 mmol/L BUN 15 (7-17) mg/dL Creatinine 0.7 (0.6-1.2) mg/dL Estimated GFR > 60 ml/min BUN/Creatinine Ratio 21 % Glucose 85 (65-100) mg/dL Calcium 9.8 (8.4-10.2) mg/dL Total Bilirubin 0.40 (0.1-1.2) mg/dL AST 33 (5-40) units/L ALT 22 (7-56) units/L Alkaline Phosphatase 185 H (35-129) units/L Total Protein 6.7 (6.3-8.2) g/dL Albumin 3.5 L (3.9-5) g/dL Albumin/Globulin Ratio 1.1 % Lipase 23 (13-60) units/L - EKG Data -: EKG Interpreted by Ri EKG shows normal: sinus rhythm Rate: normal - EKG Data When compared to previous EKG there are: no significant change Interpretation: unchanged when compared t (December 2019) 05/15/20 17:36 Unchanged from prior EKG. Sinus rhythm, 65 bpm, left axis deviation, Q waves in the inferior leads. Abnormal EKG. Not a STEMI. Unchanged from prior. - Radiology Data Radiology results: pending, report reviewed, image reviewed CT ABDOMEN AND PELVIS WITH CONTRAST INDICATION / CLINICAL INFORMATION: Acute abdominal pain, pain along gastrostomy tube, diarrhea. TECHNIQUE: Axial CT images were obtained through the abdomen and pelvis after 100 cc Omnipaque [address] scans at this location are performed using CT dose reduction for ALARA by means of automated exposure control. COMPARISON: CT abdomen and pelvis with contrast from 04/13/2020. FINDINGS: LOWER CHEST: Stable tree-in-bud pattern along the right lower lobe. Stable mild left lower lobe atelectasis/scarring. No other significant abnormality. LIVER: No significant abnormality. GALLBLADDER: No significant abnormality. BILE DUCTS: Stable nonspecific mild intrahepatic and extra hepatic biliary ductal dilatation without additional significant abnormalities. PANCREAS: Stable mild pancreatic duct dilatation without other significant abnormalities. SPLEEN: No significant abnormality. ADRENALS: No significant abnormality. RIGHT KIDNEY / URETER: No significant abnormality. LEFT KIDNEY / URETER: Surgically absent. No significant abnormality along the left renal bed. STOMACH / SMALL BOWEL: Stable small uncomplicated hiatal hernia. Satisfactory positioning of the gastrostomy tube. No other significant abnormality. COLON: Previously described proctitis has improved. A large amount of stool is again seen throughout the colon. No other significant abnormality. APPENDIX: No significant abnormality. PERITONEUM: No free fluid. No free air. No fluid collection. LYMPH NODES: No significant adenopathy. AORTA / ARTERIES: No significant abnormality. IVC / VEINS: No significant abnormality. URINARY BLADDER: No significant abnormality. REPRODUCTIVE ORGANS: Prior hysterectomy. Stable left ovarian/adnexal cyst measuring 2.8 x 2.5 cm. ADDITIONAL FINDINGS: None. SKELETAL SYSTEM: No acute abnormality or significant interval changes. IMPRESSION: 1. No new acute abnormality of the abdomen or pelvis. 2. Interval improvement of the previously seen proctitis. 3. No other significant interval changes. Signer Name: Nick De La Torre MD Signed: 05/15/2020 3:55 PM Critical care attestation.: If time is entered above; I have spent that time in minutes in the direct care of this critically ill patient, excluding procedure time. ED Disposition Clinical Impression: Acute abdominal pain, History of diarrhea, Gastrostomy tube in place Disposition: - TO HOME OR SELFCARE Is pt being admited?: No Does the pt Need Aspirin: No Condition: Stable Instructions: Abdominal Pain (ED), PEG Tube Home Guide, [id number], How to Care for a Feeding Tube, Abdominal Pain, Adult, [id number] Additional Instructions: Do not take Metformin medication for the next 2 days, if patient takes this medication. CT scan abdomen pelvis today demonstrated constipation, and demonstrated that feeding tube is in the correct location. Constipation typically takes 3 to 6 weeks to improve. Recommend that patient increase water consumption to 6 cups of water per day, and consume plenty of fiber, and vegetables, as permitted by her feeding tube. Patient may also use the MiraLAX medication as needed/directed, which may assist with symptoms of constipation. We do recommend follow-up with a primary care doctor or jeep driver within the next 5 to 7 days. Recommend that patient take [id number] acetaminophen, every 4-6 hours as needed for pain, patient may take 500 mg, every 4-6 hours [id number] as needed for pain. Please return to the emergency room right away with new pain, worsened pain, migration of pain, projectile vomiting, change in mental status, confusion, inability to tolerate liquid feeds, new, worsening or different symptoms not present on the initial emergency room evaluation. CT scan of the abdomen pelvis today demonstrated a number of nonemergent incidental findings, which have been present since April 2020. Please have primary care doctor or jeep driver contact medical records department to obtain copies of laboratory studies and a CT scan of the abdomen pelvis, and follow-up on nonemergent incidental findings. Referrals: [facility] [Provider Group] - 3-5 Days
[2020-05-15 16:49] LABS: Bilirubin,Urine NEG (Negative); Blood,Urine NEG (Negative); Color,Urine Amber (Yellow); Mucus,Urine FEW /HPF
--- NOTE | 2020-05-15 17:00 | Cat Scan Report ---
CT ABDOMEN AND PELVIS WITH CONTRAST INDICATION / CLINICAL INFORMATION: Acute abdominal pain, pain along gastrostomy tube, diarrhea. TECHNIQUE: Axial CT images were obtained through the abdomen and pelvis after 100 cc Omnipaque [address] scans at this location are performed using CT dose reduction for ALARA by means of automated exposure control. COMPARISON: CT abdomen and pelvis with contrast from 04/13/2020. FINDINGS: LOWER CHEST: Stable tree-in-bud pattern along the right lower lobe. Stable mild left lower lobe atele ctasis/scarring. No other significant abnormality. LIVER: No significant abnormality. GALLBLADDER: No significant abnormality. BILE DUCTS: Stable nonspecific mild intrahepatic and extra hepatic biliary ductal dilatation without additional significant abnormalities. PANCREAS: Stable mild pancreatic duct dilatation without other significant abnormalities. SPLEEN: No significant abnormality. ADRENALS: No significant abnormality. RIGHT KIDNEY / URETER: No significant abnormality. LEFT KIDNEY / URETER: Surgically absent. No significant abnormality along the left renal bed. STOMACH / SMALL BOWEL: Stable small uncomplicated hiatal hernia. Satisfactory positioning of the camila rostomy tube. No other significant abnormality. COLON: Previously described proctitis has improved. A large amount of stool is again seen throughout the colon. No other significant abnormality. APPENDIX: No significant abnormality. PERITONEUM: No free fluid. No free air. No fluid collection. LYMPH NODES: No significant adenopathy. AORTA / ARTERIES: No significant abnormality. IVC / VEINS: No significant abnormality. URINARY BLADDER: No significant abnormality. REPRODUCTIVE ORGANS: Prior hysterectomy. Stable left ovarian/adnexal cyst measuring 2.8 x 2.5 cm. ADDITIONAL FINDINGS: None. SKELETAL SYSTEM: No acute abnormality or significant interval changes. IMPRESSION: 1. No new acute abnormality of the abdomen or pelvis. 2. Interval improvement of the previously seen proctitis. 3. No other significant interval changes. Signer Name: Nick De La Torre MD Signed: 05/15/2020 4:55 PM Workstation Name: [id number]
[2020-05-15] MEDS ORDERED: ACETAMINOPHEN 325 MG/10.15 ML ORAL LIQD UNIT DOSE FEEDTUBE ONE (17:15)
[2020-05-15 19:42] VITALS: BP 152/88
== END 2020-05-15 19:50 | disposition home or self-care (01) ==
LOC: ED 10:22
DX: R10.84 Generalized abdominal pain (principal); R19.7 Diarrhea, unspecified; Z93.1 Gastrostomy status; I10 Essential (primary) hypertension; G43.909 Migraine, unspecified, not intractable, without status migrainosus; Z98.890 Other specified postprocedural states; Z79.2 Long term (current) use of antibiotics; Z79.899 Other long term (current) drug therapy
CPT/HCPCS: 36415; 36569; 74177; 80053; 81001; 83690; 85025; 93005; 99284; J7040; Q9967; J2270

== ENCOUNTER 2020-12-04 10:07 | Emergency (ER) | payer MEDICARE ==
[2020-12-04 12:04] LABS: Basophils % (Auto) 0.3 % (0.0-1.8); Eosinophils # (Auto) 0.4 K/mm3 (0.0-0.4); Hematocrit 45.6 % (30.3-42.9); Hemoglobin 15.4 gm/dl (10.1-14.3); Lymphocytes # (Auto) 1.2 K/mm3 (1.2-5.4); Lymphocytes % (Auto) 31.8 % (13.4-35.0); Mean Corpuscular HGB Conc 34 % (30-34); Mean Corpuscular Volume 91 fl (79-97); Monocytes # (Auto) 0.2 K/mm3 (0.0-0.8); Monocytes % (Auto) 5.5 % (0.0-7.3); Platelet Count 261 K/mm3 (140-440); Red Cell Distribution Width 14.7 % (13.2-15.2)
[2020-12-04 12:20] LABS: Alanine Aminotransferase 277 units/L (7-56); Albumin 3.6 g/dL (3.9-5); Blood Urea Nitrogen 19 mg/dL (7-17); Calcium 10.2 mg/dL (8.4-10.2); Hemolysis Index 36
[2020-12-04 12:24] LABS: BUN/Creatinine Ratio 32
[2020-12-04 13:19] LABS: Bilirubin,Urine NEG (Negative); Blood,Urine NEG (Negative); Calcium Oxalate Crystals,Urine 2+; Color,Urine Amber (Yellow); Mucus,Urine 2+ /HPF
[2020-12-04 17:09] VITALS: BP 180/82
--- NOTE | 2020-12-04 17:14 | Event Note ---
ED Screening Note Date of service: 12/04/20 ED Screening Note: Patient complains of abdominal pain x2 days admits to nausea and vomiting Patient has a G-tube in place Heart rate noted to be 120 This initial assessment/diagnostic orders/clinical plan/treatment(s) is/are subject to change based on patients health status, clinical progression and re- assessment by fellow clinical providers in the ED. Further treatment and workup at subsequent clinical providers discretion. Patient/guardian urged not to elope from the ED as their condition may be serious if not clinically assessed and managed. Initial orders include: Labs
--- NOTE | 2020-12-04 20:23 | Ultrasound Report ---
ULTRASOUND ABDOMEN, LIMITED (RIGHT UPPER QUADRANT) INDICATION / CLINICAL INFORMATION: pain, abnormal LFTs. COMPARISON: CT dated May 15, 2020 FINDINGS: PANCREAS: Visualized portion shows no significant abnormality. LIVER: No significant abnormality. GALLBLADDER: No significant abnormality. BILE DUCTS: No significant abnormality. Common bile duct measures 7 mm . FREE FLUID: None. ADDITIONAL FINDINGS: None. IMPRESSION: 1. Dilation of the common bile duct which is nonspecific and is likely chronic secondary given its ap pearance on CT dated May 15, 2020. No acute findings. Signer Name: Hao Galvan DO Signed: 12/04/2020 8:18 PM Workstation Name: [id number]
== END 2020-12-05 03:37 ==
LOC: ED 10:07
DX: R10.9 Unspecified abdominal pain (principal); Z53.21 Procedure and treatment not carried out due to patient leaving prior to being seen by health care provider
CPT/HCPCS: 36415; 76705; 80053; 81001; 83690; 85025

== ENCOUNTER 2021-03-20 02:20 | Emergency (ER) | payer MEDICARE ==
--- NOTE | 2021-03-20 02:40 | Emergency Department Report ---
HPI - General Chief Complaint: Tube Replacement Time Seen by Provider: 03/20/21 02:37 - HPI HPI: 71-year-old -[place] female presents to the emergency department via EMS from home with complaint of her tracheostomy tube came out while sleeping this evening. She has a history of an indwelling tracheostomy since 2016 when the patient had a hemorrhagic stroke. Usually she gets it changed about every 3 to 4 months through her shop worker at [facility], "Dr. Rodriguez" Patient says that she had it replaced yesterday at [facility]. She denies any current shortness of breath, neck pain, chest pain. 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) Hx Headaches / Migraines: Yes Additional medical history: brain tumor - Surgical History Past Surgical History?: Yes Additional Surgical History: Nephrectomy, Hysterectomy, tracheostomy secondary to CVA, peg tube secondary to CVA - Social History Smoking Status: Never Smoker Substance Use Type: None - Medications Home Medications: Home Medications Medication Instructions Recorded Confirmed Last Taken Type Amlodipine Besylate [Norvasc] 10 mg PO QDAY 09/15/17 09/15/17 Unknown History Famotidine [Pepcid] 20 mg PO BID 09/15/17 09/15/17 Unknown History Losartan/Hydrochlorothiazide 1 each PO QDAY 09/15/17 09/15/17 Unknown History [Hyzaar 100-12.5 Tablet] Metoclopramide [Reglan ORAL LIQ] 10 ml PO QID 09/15/17 09/15/17 Unknown History Sertraline HCl [Zoloft] 50 mg PO QDAY 09/15/17 09/15/17 Unknown History Bismuth Subsalicylate 30 ml FEEDTUBE QID PRN #240 ml 02/23/18 Unknown Rx [Pepto-Bismol] Ciprofloxacin HCl [Cipro] 500 mg FEEDTUBE BID #10 tablet 02/23/18 Unknown Rx Promethazine [Phenergan TAB] 25 mg FEEDTUBE Q6HR PRN #20 tab 02/23/18 Unknown Rx Amoxicillin/K Clav Oral Liqd 10 ml PO Q8H #300 ml 10/31/18 Unknown Rx [Augmentin 250-62.5 mg/5 ml] Azithromycin [Zithromax TAB] 250 mg PO QDAY #6 tablet 05/04/19 Unknown Rx Clindamycin [Clindamycin CAP] 300 mg PO Q6H #28 capsule 06/23/19 Unknown Rx Ciprofloxacin HCl [Ciprofloxacin 500 mg PO Q12HR #14 tab 10/12/19 Unknown Rx TAB] Ondansetron [Zofran Odt] 4 mg PO Q8HR PRN #14 tab.rapdis 10/12/19 Unknown Rx Ondansetron [Zofran Odt] 4 mg PO Q8HR PRN #14 tab.rapdis 01/02/20 Unknown Rx Docusate Sodium [Colace] 100 mg PO BID #60 capsule 04/13/20 Unknown Rx Mesalamine 1,000 mg RC QHS #14 supp.rect 04/13/20 Unknown Rx polyethylene glycoL 3350 [Miralax 17 gm PO QDAY #30 packet 05/15/20 Unknown Rx 3350] ED Review of Systems ROS: Stated complaint: TRACH CAME OUT Other details as noted in HPI Comment: All other systems reviewed and negative Constitutional: denies: chills, fever ENT: other (tracheostomy tube came out). denies: throat pain Respiratory: denies: cough, shortness of breath Cardiovascular: denies: chest pain, palpitations Skin: denies: rash, lesions Physical Exam - Physical Exam Vital Signs: Vital Signs 03/20/21 02:30 Temperature 98.2 F Pulse Rate 96 H Respiratory 20 Rate Blood Pressure 150/90 [Left] O2 Sat by Pulse 94 Oximetry Physical Exam: GENERAL: The patient is well-developed well-nourished. HENT: Normocephalic. Atraumatic. Patient has moist mucous membranes. EYES: Extraocular motions are intact. NECK: Supple. Trachea is midline. Tracheostomy stoma seen without bleeding, purulent discharge or surrounding erythema. CHEST/LUNGS: Clear to auscultation. There is no respiratory distress noted. HEART/CARDIOVASCULAR: Regular. There is no tachycardia. There is no murmur. ABDOMEN: Abdomen is soft, nontender. Patient has normal bowel sounds. SKIN: Skin is warm and dry. NEURO: The patient is awake, alert, and oriented. The patient is cooperative. Normal speech. MUSCULOSKELETAL: There is no tenderness or deformity. ED Course Vital Signs 03/20/21 02:30 Temperature 98.2 F Pulse Rate 96 H Respiratory 20 Rate Blood Pressure 150/90 [Left] O2 Sat by Pulse 94 Oximetry - Consultations Consultation #1: 03/20/21 04:12 I spoke to the shop worker on-call for [facility], Dr. Perdomo. She listened to the patient's presentation and looked up the patient's chart/records in the [facility] system. She feels that the patient needs transfer to [facility] for evaluation by otolaryngology and has accepted the patient for transfer to the emergency department. I also spoke with the emergency department physician at [facility], Dr. Ibrahim. - Procedure Description Procedures done: I unsuccessfully attempted to replace the patient's tracheostomy tube. We tried a Shiley 6 and a Shiley 4. Sterile lubricating gel was used. The neck was cleaned with alcohol pads. A one-point LET was used to try and anesthetize the stoma with only some mild success. With each attempt there was very mild bleeding seen at the stoma but no sentinel bleed. Very minimal blood loss, less than 1 cc. No obvious complications from this procedure. ED Medical Decision Making - Medical Decision Making This patient presents to the emergency department after waking up in the middle of the night with her tracheostomy tube out. The patient had a tracheostomy tube placed at [facility] yesterday when the previous trach tube was clogged. She follows with [facility] otolaryngology usually. As per the procedure section, I made multiple attempts to get a replacement tracheostomy tube in without success. No significant complications seen from the procedure. The patient does not appear in any respiratory or acute distress. Oxygen saturation is about 95% without supplemental oxygen given and the patient denies feeling short of breath. Otolaryngology was contacted and requested the patient be transferred to [facility] so that they can evaluate her and most likely place another tracheostomy tube. All of this has been discussed with the patient and she understands and agrees to the plan. Transport has been called but there is a 9 AM ETA. We will continue to monitor this patient during her ED course. Critical Care Time: No Critical care attestation.: If time is entered above; I have spent that time in minutes in the direct care of this critically ill patient, excluding procedure time. ED Disposition Clinical Impression: Complication of tracheostomy tube, Encounter for tracheostomy tube change Hypertension Qualifiers: Hypertension type: unspecified Qualified Code(s): I10 - Essential (primary) hypertension Disposition: 51 HOSPICE/MEDICAL FACILITY Is pt being admited?: No Condition: Stable Instructions: Hypertension (ED) Referrals: PRIMARY CARE, [Primary Care Provider] - 3-5 Days Time of Disposition: 04:13
[2021-03-20] MEDS ORDERED: LET TOPICAL (LIDOCAINE/EPINEPHRINE/TETRACAINE) 3 ML TP ONE (03:22)
[2021-03-20] MEDS ORDERED: propofoL 200 MG/20 ML VIAL IV ONE (09:53)
[2021-03-20 10:09] VITALS: BP 134/73
== END 2021-03-20 10:10 | disposition hospice, inpatient (51) ==
LOC: ED 02:20
DX: J95.09 Other tracheostomy complication (principal); I10 Essential (primary) hypertension; Z86.73 Personal history of transient ischemic attack (TIA), and cerebral infarction without residual deficits; G40.909 Epilepsy, unspecified, not intractable, without status epilepticus; Z85.841 Personal history of malignant neoplasm of brain; Z98.890 Other specified postprocedural states
CPT/HCPCS: 99284; J2704

== ENCOUNTER 2021-03-21 19:34 | Emergency (ER) | payer MEDICARE ==
[2021-03-21 19:47] VITALS: BP 133/117
--- NOTE | 2021-03-21 21:33 | Emergency Department Report ---
ED General Adult HPI - General Chief complaint: Medical Clearance Stated complaint: DIFFICULTY BREATHING Time Seen by Provider: 03/21/21 21:16 Source: EMS Mode of arrival: Stretcher Limitations: No Limitations - History of Present Illness Initial comments: Ms. Sharp is a 71 years old female with history of hemorrhagic stroke back in 2017. Patient has chronic tracheostomy. Patient presented to the ER via EMS from home for shortness of breath after patient had a tracheostomy replacement yesterday at [facility]. Patient stated that when she went back home her cannula is not fitting her new tracheostomy. Patient denied any fever or chills. Patient denied chest pain, nausea or vomiting. - Related Data Home Medications Medication Instructions Recorded Confirmed Last Taken Amlodipine Besylate [Norvasc] 10 mg PO QDAY 09/15/17 09/15/17 Unknown Famotidine [Pepcid] 20 mg PO BID 09/15/17 09/15/17 Unknown Losartan/Hydrochlorothiazide 1 each PO QDAY 09/15/17 09/15/17 Unknown [Hyzaar 100-12.5 Tablet] Metoclopramide [Reglan ORAL LIQ] 10 ml PO QID 09/15/17 09/15/17 Unknown Sertraline HCl [Zoloft] 50 mg PO QDAY 09/15/17 09/15/17 Unknown Previous Rx's Medication Instructions Recorded Last Taken Type Bismuth Subsalicylate 30 ml FEEDTUBE QID PRN #240 ml 02/23/18 Unknown Rx [Pepto-Bismol] Ciprofloxacin HCl [Cipro] 500 mg FEEDTUBE BID #10 tablet 02/23/18 Unknown Rx Promethazine [Phenergan TAB] 25 mg FEEDTUBE Q6HR PRN #20 tab 02/23/18 Unknown Rx Amoxicillin/K Clav Oral Liqd 10 ml PO Q8H #300 ml 10/31/18 Unknown Rx [Augmentin 250-62.5 mg/5 ml] Azithromycin [Zithromax TAB] 250 mg PO QDAY #6 tablet 05/04/19 Unknown Rx Clindamycin [Clindamycin CAP] 300 mg PO Q6H #28 capsule 06/23/19 Unknown Rx Ciprofloxacin HCl [Ciprofloxacin 500 mg PO Q12HR #14 tab 10/12/19 Unknown Rx TAB] Ondansetron [Zofran Odt] 4 mg PO Q8HR PRN #14 tab.baltadis 10/12/19 Unknown Rx Ondansetron [Zofran Odt] 4 mg PO Q8HR PRN #14 tab.rapdis 01/02/20 Unknown Rx Docusate Sodium [Colace] 100 mg PO BID #60 capsule 04/13/20 Unknown Rx Mesalamine 1,000 mg RC QHS #14 supp.rect 04/13/20 Unknown Rx polyethylene glycoL 3350 [Miralax 17 gm PO QDAY #30 packet 05/15/20 Unknown Rx 3350] Allergies Allergy/AdvReac Type Severity Reaction Status Date / Time No Known Allergies Allergy Verified 03/21/21 19:47 ED Review of Systems ROS: Stated complaint: DIFFICULTY BREATHING Other details as noted in HPI Comment: All other systems reviewed and negative Constitutional: denies: chills, fever Respiratory: shortness of breath. 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) Hx Headaches / Migraines: Yes Additional medical history: brain tumor - Surgical History Additional Surgical History: Nephrectomy, Hysterectomy, tracheostomy secondary to CVA, peg tube secondary to CVA - Social History Smoking Status: Never Smoker Substance Use Type: None - Medications Home Medications: Home Medications Medication Instructions Recorded Confirmed Last Taken Type Amlodipine Besylate [Norvasc] 10 mg PO QDAY 09/15/17 09/15/17 Unknown History Famotidine [Pepcid] 20 mg PO BID 09/15/17 09/15/17 Unknown History Losartan/Hydrochlorothiazide 1 each PO QDAY 09/15/17 09/15/17 Unknown History [Hyzaar 100-12.5 Tablet] Metoclopramide [Reglan ORAL LIQ] 10 ml PO QID 09/15/17 09/15/17 Unknown History Sertraline HCl [Zoloft] 50 mg PO QDAY 09/15/17 09/15/17 Unknown History Bismuth Subsalicylate 30 ml FEEDTUBE QID PRN #240 ml 02/23/18 Unknown Rx [Pepto-Bismol] Ciprofloxacin HCl [Cipro] 500 mg FEEDTUBE BID #10 tablet 02/23/18 Unknown Rx Promethazine [Phenergan TAB] 25 mg FEEDTUBE Q6HR PRN #20 tab 02/23/18 Unknown Rx Amoxicillin/K Clav Oral Liqd 10 ml PO Q8H #300 ml 10/31/18 Unknown Rx [Augmentin 250-62.5 mg/5 ml] Azithromycin [Zithromax TAB] 250 mg PO QDAY #6 tablet 05/04/19 Unknown Rx Clindamycin [Clindamycin CAP] 300 mg PO Q6H #28 capsule 06/23/19 Unknown Rx Ciprofloxacin HCl [Ciprofloxacin 500 mg PO Q12HR #14 tab 10/12/19 Unknown Rx TAB] Ondansetron [Zofran Odt] 4 mg PO Q8HR PRN #14 tab.rapdis 10/12/19 Unknown Rx Ondansetron [Zofran Odt] 4 mg PO Q8HR PRN #14 tab.rapdis 01/02/20 Unknown Rx Docusate Sodium [Colace] 100 mg PO BID #60 capsule 04/13/20 Unknown Rx Mesalamine 1,000 mg RC QHS #14 supp.rect 04/13/20 Unknown Rx polyethylene glycoL 3350 [Miralax 17 gm PO QDAY #30 packet 05/15/20 Unknown Rx 3350] ED Physical Exam - General Limitations: No Limitations General appearance: alert, in no apparent distress - Head Head exam: Present: atraumatic, normocephalic, normal inspection - ENT ENT exam: Present: other (Tracheostomy in place. No discharge.) - Respiratory Respiratory exam: Present: normal lung sounds bilaterally. Absent: respiratory distress - Cardiovascular Cardiovascular Exam: Present: regular rate, normal rhythm, normal heart sounds - GI/Abdominal GI/Abdominal exam: Present: soft, normal bowel sounds. Absent: distended, tenderness, guarding, rebound, rigid, organomegaly, mass, bruit, pulsatile mass - Neurological Exam Neurological exam: Present: alert, oriented X3 - Psychiatric Psychiatric exam: Present: normal mood - Skin Skin exam: Present: warm, intact, normal color ED Course Vital Signs 03/21/21 19:46 Temperature 98.5 F Pulse Rate 108 H Respiratory 20 Rate Blood Pressure 133/117 [Left] O2 Sat by Pulse 99 Oximetry ED Medical Decision Making - Medical Decision Making Ms. Sharp is a 71 years old female with history of hemorrhagic stroke back in 2017. Patient has chronic tracheostomy. Patient presented to the ER via EMS from home for shortness of breath after patient had a tracheostomy replacement yesterday at [facility]. Patient stated that when she went back home her cannula is not fitting her new tracheostomy. Patient denied any fever or chills. Patient denied chest pain, nausea or vomiting. Tracheostomy suctioned by respiratory care. Patient stated that she is feeling much better. Oxygen saturation is 100% on room air. Patient advised to follow- up with her ENT doctor tomorrow for further management. Patient also advised to return to the ER if she develop any new symptoms. Critical care attestation.: If time is entered above; I have spent that time in minutes in the direct care of this critically ill patient, excluding procedure time. ED Disposition Clinical Impression: Complication of tracheostomy tube Disposition: 01 HOME / SELF CARE / HOMELESS Is pt being admited?: No Condition: Stable Instructions: How to Suction a Tracheostomy Tube, Adult Referrals: PRIMARY CARE, [Referring] - 3-5 Days
== END 2021-03-21 22:54 | disposition home or self-care (01) ==
LOC: ED 19:34
DX: J95.09 Other tracheostomy complication (principal); Z86.73 Personal history of transient ischemic attack (TIA), and cerebral infarction without residual deficits; G40.909 Epilepsy, unspecified, not intractable, without status epilepticus; C71.9 Malignant neoplasm of brain, unspecified
CPT/HCPCS: 99282

== ENCOUNTER 2021-04-18 08:44 | Emergency (ER) | payer MEDICARE ==
[2021-04-18] MEDS ORDERED: SODIUM CHLORIDE 0.9% 1000 ML 1,000 ML IV ONE (09:01)
[2021-04-18] MEDS ORDERED: SODIUM CHLORIDE 0.9% IRR 500 ML BOTTLE IR ONE (09:12)
[2021-04-18 09:56] LABS: Basophils # (Auto) 0.1 K/mm3 (0.0-0.1); Basophils % (Auto) 1.8 % (0.0-1.8); Eosinophils # (Auto) 0.7 K/mm3 (0.0-0.4); Eosinophils % (Auto) 13.6 % (0.0-4.3); Hematocrit 41.2 % (30.3-42.9); Hemoglobin 13.7 gm/dl (10.1-14.3); Lymphocytes # (Auto) 1.3 K/mm3 (1.2-5.4); Lymphocytes % (Auto) 25.6 % (13.4-35.0); Mean Corpuscular HGB Conc 33 % (30-34); Mean Corpuscular Volume 95 fl (79-97); Monocytes # (Auto) 0.2 K/mm3 (0.0-0.8); Monocytes % (Auto) 4.5 % (0.0-7.3); Platelet Count 222 K/mm3 (140-440); Red Blood Count 4.35 M/mm3 (3.65-5.03)
[2021-04-18 10:16] LABS: Alanine Aminotransferase 12 units/L (7-56); Blood Urea Nitrogen 15 mg/dL (7-17); Calcium 9.2 mg/dL (8.4-10.2); Hemolysis Index 334
--- NOTE | 2021-04-18 10:18 | Emergency Department Report ---
ED General Adult HPI - General Chief complaint: Chest Pain Stated complaint: CHEST PAIN, CLOGGED G TUBE Time Seen by Provider: 04/18/21 10:04 Source: patient Mode of arrival: Ambulatory Limitations: No Limitations - History of Present Illness -: Gradual, days(s) Location: abdomen Radiation: non-radiation Severity scale (0 -10): 2 Quality: aching Worsens with: none - Related Data Home Medications Medication Instructions Recorded Confirmed Last Taken Amlodipine Besylate [Norvasc] 10 mg PO QDAY 09/15/17 09/15/17 Unknown Famotidine [Pepcid] 20 mg PO BID 09/15/17 09/15/17 Unknown Losartan/Hydrochlorothiazide 1 each PO QDAY 09/15/17 09/15/17 Unknown [Hyzaar 100-12.5 Tablet] Metoclopramide [Reglan ORAL LIQ] 10 ml PO QID 09/15/17 09/15/17 Unknown Sertraline HCl [Zoloft] 50 mg PO QDAY 09/15/17 09/15/17 Unknown Previous Rx's Medication Instructions Recorded Last Taken Type Bismuth Subsalicylate 30 ml FEEDTUBE QID PRN #240 ml 02/23/18 Unknown Rx [Pepto-Bismol] Ciprofloxacin HCl [Cipro] 500 mg FEEDTUBE BID #10 tablet 02/23/18 Unknown Rx Promethazine [Phenergan TAB] 25 mg FEEDTUBE Q6HR PRN #20 tab 02/23/18 Unknown Rx Amoxicillin/K Clav Oral Liqd 10 ml PO Q8H #300 ml 10/31/18 Unknown Rx [Augmentin 250-62.5 mg/5 ml] Azithromycin [Zithromax TAB] 250 mg PO QDAY #6 tablet 05/04/19 Unknown Rx Clindamycin [Clindamycin CAP] 300 mg PO Q6H #28 capsule 06/23/19 Unknown Rx Ciprofloxacin HCl [Ciprofloxacin 500 mg PO Q12HR #14 tab 10/12/19 Unknown Rx TAB] Ondansetron [Zofran Odt] 4 mg PO Q8HR PRN #14 tab.rapdis 10/12/19 Unknown Rx Ondansetron [Zofran Odt] 4 mg PO Q8HR PRN #14 tab.rapdis 01/02/20 Unknown Rx Docusate Sodium [Colace] 100 mg PO BID #60 capsule 04/13/20 Unknown Rx Mesalamine 1,000 mg RC QHS #14 supp.rect 04/13/20 Unknown Rx polyethylene glycoL 3350 [Miralax 17 gm PO QDAY #30 packet 05/15/20 Unknown Rx 3350] Allergies Allergy/AdvReac Type Severity Reaction Status Date / Time No Known Allergies Allergy Verified 04/18/21 08:52 ED Review of Systems ROS: Stated complaint: CHEST PAIN, CLOGGED G TUBE Other details as noted in HPI Constitutional: denies: chills, fever Eyes: denies: eye pain, eye discharge, vision change ENT: denies: ear pain, throat pain Respiratory: denies: cough, shortness of breath, wheezing Cardiovascular: denies: chest pain, palpitations Endocrine: no symptoms reported Gastrointestinal: denies: abdominal pain, nausea, diarrhea Genitourinary: denies: urgency, dysuria, discharge Musculoskeletal: denies: back pain, joint swelling, arthralgia Skin: denies: rash, lesions Neurological: denies: headache, weakness, paresthesias Psychiatric: denies: anxiety, depression Hematological/Lymphatic: denies: easy bleeding, easy bruising 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) Hx Headaches / Migraines: Yes Additional medical history: brain tumor - Surgical History Additional Surgical History: Nephrectomy, Hysterectomy, tracheostomy secondary to CVA, peg tube secondary to CVA - Social History Smoking Status: Never Smoker Substance Use Type: None - Medications Home Medications: Home Medications Medication Instructions Recorded Confirmed Last Taken Type Amlodipine Besylate [Norvasc] 10 mg PO QDAY 09/15/17 09/15/17 Unknown History Famotidine [Pepcid] 20 mg PO BID 09/15/17 09/15/17 Unknown History Losartan/Hydrochlorothiazide 1 each PO QDAY 09/15/17 09/15/17 Unknown History [Hyzaar 100-12.5 Tablet] Metoclopramide [Reglan ORAL LIQ] 10 ml PO QID 09/15/17 09/15/17 Unknown History Sertraline HCl [Zoloft] 50 mg PO QDAY 09/15/17 09/15/17 Unknown History Bismuth Subsalicylate 30 ml FEEDTUBE QID PRN #240 ml 02/23/18 Unknown Rx [Pepto-Bismol] Ciprofloxacin HCl [Cipro] 500 mg FEEDTUBE BID #10 tablet 02/23/18 Unknown Rx Promethazine [Phenergan TAB] 25 mg FEEDTUBE Q6HR PRN #20 tab 02/23/18 Unknown Rx Amoxicillin/K Clav Oral Liqd 10 ml PO Q8H #300 ml 10/31/18 Unknown Rx [Augmentin 250-62.5 mg/5 ml] Azithromycin [Zithromax TAB] 250 mg PO QDAY #6 tablet 05/04/19 Unknown Rx Clindamycin [Clindamycin CAP] 300 mg PO Q6H #28 capsule 06/23/19 Unknown Rx Ciprofloxacin HCl [Ciprofloxacin 500 mg PO Q12HR #14 tab 10/12/19 Unknown Rx TAB] Ondansetron [Zofran Odt] 4 mg PO Q8HR PRN #14 tab.rapdis 10/12/19 Unknown Rx Ondansetron [Zofran Odt] 4 mg PO Q8HR PRN #14 tab.rapdis 01/02/20 Unknown Rx Docusate Sodium [Colace] 100 mg PO BID #60 capsule 04/13/20 Unknown Rx Mesalamine 1,000 mg RC QHS #14 supp.rect 04/13/20 Unknown Rx polyethylene glycoL 3350 [Miralax 17 gm PO QDAY #30 packet 05/15/20 Unknown Rx 3350] ED Physical Exam - General Limitations: No Limitations General appearance: alert, in no apparent distress - Head Head exam: Present: atraumatic, normocephalic - Eye Eye exam: Present: normal appearance - ENT ENT exam: Present: mucous membranes moist - Neck Neck exam: Present: normal inspection - Respiratory Respiratory exam: Present: normal lung sounds bilaterally. Absent: respiratory distress - Cardiovascular Cardiovascular Exam: Present: regular rate, normal rhythm. Absent: systolic murmur, diastolic murmur, rubs, gallop - GI/Abdominal GI/Abdominal exam: Present: soft, normal bowel sounds, other (PEG tube clogged ) - Extremities Exam Extremities exam: Present: normal inspection - Back Exam Back exam: Present: normal inspection - Neurological Exam Neurological exam: Present: alert, oriented X3 - Psychiatric Psychiatric exam: Present: normal affect, normal mood - Skin Skin exam: Present: warm, dry, intact, normal color. Absent: rash ED Course Vital Signs 04/18/21 04/18/21 08:52 12:22 Temperature 98.4 F Pulse Rate 106 H 95 H Respiratory 15 14 Rate Blood Pressure 142/61 Blood Pressure 141/68 [Right] O2 Sat by Pulse 96 97 Oximetry - Reevaluation(s) Reevaluation #1: 04/18/21 10:17 Pegtube replaced - Feeding Tube Replacement Reason for Replacement: not functioning/damaged Initial Tube Inserted: greater than 4 weeks Type of Tube: G-J Tube Use of Tube: medications and feeding Insertion Site Prior to Procedure: clean Tube Used for Reinsertion: other Yoruba Tube Size (F): 18 Verification of Placement: KUB Tube Secured by: G-tube attachment device Patient Tolerated Procedure: no complications ED Medical Decision Making - Lab Data Result diagrams: 04/18/21 09:01 04/18/21 09:01 Critical care attestation.: If time is entered above; I have spent that time in minutes in the direct care of this critically ill patient, excluding procedure time. ED Disposition Clinical Impression: Feeding tube blocked Disposition: 01 HOME / SELF CARE / HOMELESS Is pt being admited?: No Does the pt Need Aspirin: No Condition: Stable Referrals: PRIMARY CARE, [Primary Care Provider] - 3-5 Days
[2021-04-18 10:22] LABS: BUN/Creatinine Ratio 25
--- NOTE | 2021-04-18 10:23 | XRay Report ---
CHEST 2 VIEWS Abdomen-2 views INDICATION: Acute generalized chest and abdominal pain. COMPARISON: Chest x-ray from 05/04/[address] abdomen/pelvis from 05/15/2020 FINDINGS: SUPPORT DEVICES: Tracheostomy tube remains in the midline. Gastrostomy tube projects over the left up per quadrant. HEART: Within normal limits. LUNGS/PLEURA: Aside from a few tiny scattered calcified granulomata and calcified right hilar lymph n odes, the lungs remain clear. No pneumothorax. BOWEL FINDINGS: Nonobstructive bowel gas pattern. IMPRESSION: 1. Support devices as above. 2. Nothing acute. Signer Name: Matt Washington MD Signed: 04/18/2021 10:19 AM Workstation Name: [id number]
[2021-04-18] MEDS ORDERED: IPRATROPIUM/ALBUTEROL SULFATE 3 ML AMPUL.NEB IH ONE (11:21)
[2021-04-18 15:10] VITALS: BP 117/51
--- NOTE | 2021-04-19 10:31 | Electrocardiograph Report ---
[facility] Test Date: 2021-04-18 Test Time: 13:50:46 Pat Name: JULIO C HERNANDEZ Department: Room: Gender: F Final Application Reviewer: TANIA : 1950 Requested By: YOSEF STEWART Order Number: [id number] Reading MD: Dionne Gomez Measurements Intervals [place] Rate: 95 P: 46 SC: 180 QRS: -59 QRSD: 85 T: 45 QT: 358 QTc: 449 Interpretive Statements Sinus rhythm Left axis deviation Nonspecific T abnormalities, anterior leads No previous ECG available for comparison Electronically Signed On 04-19-2021 10:30:42 EST by Dionne Gomez
== END 2021-04-18 14:05 | disposition home or self-care (01) ==
LOC: ED 08:44
DX: K94.23 Gastrostomy malfunction (principal); I10 Essential (primary) hypertension
CPT/HCPCS: 36415; 43762; 71046; 74018; 80053; 83690; 84484; 85025; 93005; 96360; 99283; J7030; 94644; Q0162